=== PATIENT | female | born 1990 | race American Indian/Alaskan Native ===

== ENCOUNTER 2017-08-27 22:11 | Emergency (ER) | payer SELFPAY ==
[2017-08-27 22:32] VITALS: BP 113/66
[2017-08-27 23:08] LABS: Hematocrit 38.3 % (30.3-42.9); Hemoglobin 12.5 gm/dl (10.1-14.3); Mean Corpuscular HGB Conc 33 % (30-34); Mean Corpuscular Hemoglobin 24 pg (28-32); Mean Corpuscular Volume 75 fl (79-97); Platelet Count 200 K/mm3 (140-440); Red Blood Count 5.14 M/mm3 (3.65-5.03); Red Cell Distribution Width 13.9 % (13.2-15.2)
[2017-08-27 23:23] LABS: BUN/Creatinine Ratio 13; Blood Urea Nitrogen 8 mg/dL (7-17); Calcium 9.2 mg/dL (8.4-10.2); Hemolysis Index 3
--- NOTE | 2017-08-28 00:36 | Ultrasound Report ---
FINAL REPORT EXAM: US OB TRANSVAGINAL HISTORY: vaginal bleeding with TECHNIQUE: Transvaginal imaging was obtained the pelvis including Doppler interrogation of the adnexa and uterus. FINDINGS: The uterus is anteverted measuring 10.5 cm x 5.3 cm x 6.1 cm. Centrally uterus is a sac-like structure measuring 7.5 mm in diameter. There is no associated yolk sac or pole seen within it. The cervix is closed. In the lower uterine segment is a hypoechoic myometrial lesion measuring up to 1.1 cm in diameter compatible with small fibroid. There is a small amount of free fluid in cul-de-sac. The right ovary measures 4.6 cm x 4.3 cm x 3.8 cm. There are 2 functional cysts in the right ovary, the larger measuring 3.3 cm in diameter. The blood flow is normal to the right ovary. The left ovary is normal size contour blood flow and echotexture measuring 3.1 cm x 1.8 cm x 1.7 cm. IMPRESSION: Intrauterine sac-like structure without evidence of yolk sac or pole. Follow-up study recommended in 7-10 days to confirm a viable IUP versus demise. Functional cysts in the right ovary, the larger measuring 3.3 cm in diameter. Small amount of free fluid in cul-de-sac.
--- NOTE | 2017-08-28 00:48 | Ultrasound Report ---
FINAL REPORT EXAM: US OB < = 14 WEEKS FETUS HISTORY: vaginal bleeding with TECHNIQUE: Transabdominal imaging was obtained of the pelvis including Doppler interrogation of the uterus and adnexa. FINDINGS: The uterus is anteverted measuring 10.5 cm x 5.3 cm x 6.1 cm. Central in the uterus is intrauterine sac-like structure measuring 7.5 mm in diameter. There is no evidence of a pole or yolk sac. The cervix is closed. In the lower uterine segment right of midline is 1.1 cm hypoechoic myometrial lesion compatible small fibroid. There is a small amount of free fluid in the cul-de-sac. The right ovary measures 4.6 cm x 4.3 cm x 3.8 cm. There are several functional cyst in the right ovary, the largest measuring 3.3 cm in diameter. The blood flow is normal to the right ovary. The left ovary is normal size contour blood flow and echotexture measuring 3.1 cm x 1.8 cm x 1.7 cm. IMPRESSION: Intrauterine sac-like structure corresponding to a 5 week 4 day . No evidence of pole or yolk sac. Repeat imaging is recommended 7-10 days to confirm a viable IUP versus demise. Functional cysts in the right ovary, the larger measuring 3.3 cm in diameter. Small amount of free fluid in cul-de-sac. Small fibroid in the lower uterine segment right of midline.
[2017-08-28 01:57] LABS: Bilirubin,Urine NEG (Negative); Blood,Urine MOD (Negative); Color,Urine Yellow (Yellow); Mucus,Urine FEW /HPF; Protein,Urine <15 mg/dL mg/dL (Negative); Urobilinogen,Urine < 2.0 mg/dL (<2.0)
== END 2017-08-28 01:06 | disposition left against medical advice (07) ==
LOC: ED 22:11
DX: N93.9 Abnormal uterine and vaginal bleeding, unspecified (principal); R10.2 Pelvic and perineal pain; Z53.21 Procedure and treatment not carried out due to patient leaving prior to being seen by health care provider
CPT/HCPCS: 36415; 76801; 76817; 80048; 81001; 84702; 85027; 86900; 86901

== ENCOUNTER 2017-09-11 16:20 | Emergency (ER) | payer SELFPAY ==
--- NOTE | 2017-09-11 17:55 | Emergency Department Report ---
Blank Doc - Documentation Documentation: Patient is a 27-year-old female who was here in emergency department at the end of last month for vaginal bleeding. Patient was calm and pain-free at that time. Patient eloped. Patient did have a Quant that was roughly 2500 and blood work was within normal limits. Patient was O+ for blood type. Patient had an ultrasound that was read as an irregular shaped gestational sac with no pole or yolk sac did look this either to be a early IUP or demise. Patient eloped left stage stated she was going to see her primary doctor but did not. Patient states her bleeding did stop the day after her last visit. Patient states this morning she started having intense lower abdominal pain. Patient is having large amounts of blood clots that she is passing. Patient most likely is having a miscarriage. Because of the amount of pain the patient said in the amount of blood she is passing should be sensitive to the main for further evaluation.
[2017-09-11] MEDS ORDERED: MORPHINE IV ONE (18:32)
[2017-09-11] MEDS ORDERED: NACL 0.9% 1000 ML 1,000 ML IV ONE (18:33)
[2017-09-11] MEDS ORDERED: ZOFRAN IV ONE (18:33)
[2017-09-11] MEDS ORDERED: MORPHINE ONE (18:34)
[2017-09-11] MEDS ORDERED: ZOFRAN ONE (18:34)
[2017-09-11] MEDS ORDERED: NACL 0.9% 1000 ML 1,000 ML ONE (18:34)
[2017-09-11 18:51] VITALS: BP 116/64
[2017-09-11 19:31] LABS: Hematocrit 38.6 % (30.3-42.9); Mean Corpuscular HGB Conc 31 % (30-34); Mean Corpuscular Hemoglobin 24 pg (28-32); Mean Corpuscular Volume 77 fl (79-97); Platelet Count 163 K/mm3 (140-440); Red Blood Count 5.05 M/mm3 (3.65-5.03); Red Cell Distribution Width 14.3 % (13.2-15.2)
--- NOTE | 2017-09-11 19:56 | Emergency Department Report ---
ED HPI - General Chief complaint: Vaginal Bleeding Stated complaint: VAGINAL BLEEDING Time Seen by Provider: 09/11/17 17:18 Source: patient, old records reviewed Mode of arrival: Ambulatory Limitations: No Limitations - History of Present Illness Initial comments: 27-year-old female 7, para 5, with history of one miscarriage presents to the hospital with vaginal bleeding and cramping during current . Patient has been bleeding intermittently since her last visit here on August 27. Patient had labs and ultrasound the left prior to M.D. evaluation but had an ultrasound that was positive for a intrauterine sac like structure corresponding to 5 weeks and 4 days without pole or yolk sac present. Her beta hCG at that time was 2453. Patient now states that for the past 2 days that he has been more significant with clots and cramping superpubic abdominal pain. She has used approximately 3 regular passed today. She has not initiated care lack of insurance is waiting for her Medicare to be activated - Related Data Allergies Allergy/AdvReac Type Severity Reaction Status Date / Time No Known Allergies Allergy Verified 05/13/16 23:49 ED Review of Systems ROS: Stated complaint: VAGINAL BLEEDING Other details as noted in HPI Comment: All other systems reviewed and negative ED Past Medical Hx - Past Medical History Previous Medical History?: Yes - Surgical History Past Surgical History?: Yes Additional Surgical History: C-Sec x 5 - Social History Smoking Status: Current Every Day Smoker Substance Use Type: Marijuana ED Physical Exam - General Limitations: No Limitations - Other Other exam information: General: No limitations, patient is alert in no acute distress Head exam: Atraumatic, normocephalic Eyes exam: Normal appearance ENT: Moist mucous membrane, normal oropharynx Neck exam: Normal inspection, full range of motion, no meningismus nontender Respiratory exam: Clear to auscultation bilateral, no wheezes, rales, crackles Cardiovascular: Normal rate and rhythm, normal heart sounds Abdomen: Soft, nondistended, mild suprapubic tenderness, with normal bowel sounds, no rebound, or guarding Extremity: Full range of motion normal inspection no deformity Back: Normal Inspection, full range of motion, no tenderness Neurologic: Alert, oriented x3, cranial nerves intact, no motor or sensory deficit Psychiatric: normal affect, normal mood Skin: Warm, dry, intact ED Course Vital Signs 09/11/17 09/11/17 09/11/17 16:29 18:40 18:45 Temperature 98.2 F Pulse Rate 98 H 71 Respiratory 18 20 20 Rate Blood Pressure 123/78 Blood Pressure 116/64 [Left] O2 Sat by Pulse 97 100 Oximetry - Consultations Consultation #1: 09/11/17 22:[address] Byrnes carton folder [facility]. Recommend follow-up in office tomorrow and bleeding precautions ED Medical Decision Making - Lab Data Result diagrams: 09/11/17 19:08 Lab Results 09/11/17 09/11/17 Range/Units 16:51 19:08 WBC 7.9 (4.5-11.0) K/mm3 RBC 5.05 H (3.65-5.03) M/mm3 Hgb 12.0 (10.1-14.3) gm/dl Hct 38.6 (30.3-42.9) % MCV 77 L (79-97) fl MCH 24 L (28-32) pg MCHC 31 (30-34) % RDW 14.3 (13.2-15.2) % Plt Count 163 (140-440) K/mm3 HCG, Quant 07324 H (0-4) mIU/mL - Radiology Data Radiology results: report reviewed US OB TRANSVAG/Pelvic FINDINGS: Uterus measures 11 x 5 centimeters. Thickened row genius endometrium is noted in the uterine body. An irregular fluid-filled sac is noted in the lower uterine segment measuring about 22 millimeters corresponding to a gestational age of 7 weeks and 1 day. A small rounded cystic structure measuring 4 millimeters is noted within the sac most likely representing a yolk sac. There is no evidence of pole. Right ovary measures 4 x 2.5 x 2.0 centimeters and left ovary measures 3.0 x 2.6 x 2.0 centimeters. IMPRESSION: Findings are most consistent with incomplete with the gestational sac in the lower uterine segment. Follow-up studies are recommended. - Medical Decision Making Patients hCG improved compared to previous but ultrasound still does not reveal a pole. Given gestational sac size and location it is likely patient is having an incomplete . She is instructed to follow up tomorrow in the office with [facility] and bleeding cautious provided. BLoot type O+ so rhogam not necessary - Differential Diagnosis ectopic, miscarriage, threatened miscarriage Critical Care Time: No Critical care attestation.: If time is entered above; I have spent that time in minutes in the direct care of this critically ill patient, excluding procedure time. ED Disposition Clinical Impression: Vaginal bleeding affecting early Disposition: DC-01 TO HOME OR SELFCARE Is pt being admited?: No Does the pt Need Aspirin: No Condition: Stable Instructions: Threatened Miscarriage (ED) Additional Instructions: It is likely that you are having a miscarriage but you need further evaluation to confirm this diagnosis. Please follow-up with [facility] tomorrow. Call the office in the morning to receive a time to be evaluated. Please return if symptoms worsen as indicated by your discharge instruction. Take Tylenol as needed for pain. Referrals: CELSO CRANDALL MD [Staff Physician] - 09/12/17 Time of Disposition: 22:25
[2017-09-11] MEDS ORDERED: TYLENOL PO ONE (21:11)
--- NOTE | 2017-09-11 21:53 | Ultrasound Report ---
FINAL REPORT PROCEDURE: US OB TRANSVAGINAL TECHNIQUE: Real-time transvaginal sonography of the uterus, placenta, amniotic fluid, adnexa, and fetus was performed with image documentation. Measurements were obtained to determine age/size. M-mode Doppler was used to document heartbeat. CPT 29547 HISTORY: vag bleeding/ COMPARISON: 08/27/2017 FINDINGS: Uterus measures 11 x 5 centimeters. Thickened row genius endometrium is noted in the uterine body. An irregular fluid-filled sac is noted in the lower uterine segment measuring about 22 millimeters corresponding to a gestational age of 7 weeks and 1 day. A small rounded cystic structure measuring 4 millimeters is noted within the sac most likely representing a yolk sac. There is no evidence of pole. Right ovary measures 4 x 2.5 x 2.0 centimeters and left ovary measures 3.0 x 2.6 x 2.0 centimeters. IMPRESSION: Findings are most consistent with incomplete with the gestational sac in the lower uterine segment. Follow-up studies are recommended.
--- NOTE | 2017-09-12 08:45 | Ultrasound Report ---
FINAL REPORT EXAM: US OB < = 14 WEEKS FETUS HISTORY: vag bleeding/ COMPARISONS: Transvaginal ultrasound of the same date, 08/27/2017 FINDINGS: Transabdominal grayscale and color Doppler first-trimester ultrasound A gestational sac is seen within the lower uterine segment and appears slightly irregular. Heterogeneous endometrium surrounds the gestational sac. The contents of the gestational sac are better demonstrated on transvaginal ultrasound of the same date. Ovarian echotexture is also better demonstrated on transvaginal ultrasound of the same date. IMPRESSION: Gestational sac appears irregular and is present within the lower uterine segment. The gestational sac has migrated inferiorly compared to 08/27/2017. Coupled with vaginal bleeding, findings are concerning for progress/incomplete . The contents of the gestational sac are better demonstrated on transvaginal ultrasound of the same date. Close interval clinical and sonographic follow-up are recommended. Note: This examination was performed on 09/11/2017 but not submitted for interpretation until 09/12/2017.
== END 2017-09-11 22:51 | disposition home or self-care (01) ==
LOC: ED 16:20
DX: O20.9 Hemorrhage in early pregnancy, unspecified (principal); O99.331 Smoking (tobacco) complicating pregnancy, first trimester; O26.891 Other specified pregnancy related conditions, first trimester; R10.2 Pelvic and perineal pain; F12.10 Cannabis abuse, uncomplicated; Z3A.01 Less than 8 weeks gestation of pregnancy
CPT/HCPCS: 36415; 76801; 76817; 84702; 85027; 96361; 96374; 96375; 99284; J2270; J2405; J7030

== ENCOUNTER 2017-09-17 13:54 | Emergency (ER) | payer SELFPAY ==
[2017-09-17 14:27] VITALS: BP 129/73
--- NOTE | 2017-09-17 19:07 | Emergency Department Report ---
Blank Doc - Documentation Documentation: 27-year-old female presents to the hospital vaginal bleeding and current . Patient was seen here on August 27 and September 11 for the same symptoms. On August 27 hCG was 2453 and on September 11 with 12,573 Ultrasound from the September 11 IMPRESSION: Findings are most consistent with incomplete with the gestational sac in the lower uterine segment. Follow-up studies are recommended. Patient was given follow-up information with [facility] and states they could not see her. Bleeding increased today and used 10 has today prior to my evaluation. Also continues to have noted Lower abdominal crampy pain not relieved with Tylenol. Blood type O+ Labs ordered CBC, hCG Repeat ultrasound Kiko
[2017-09-17] MEDS ORDERED: ZOFRAN ODT PO ONE (19:11)
[2017-09-17] MEDS ORDERED: NORCO 10/325 PO ONE (19:11)
[2017-09-17 19:24] LABS: Basophils # (Auto) 0.1 K/mm3 (0.0-0.1); Basophils % (Auto) 0.6 % (0.0-1.8); Eosinophils % (Auto) 0.3 % (0.0-4.3); Hematocrit 38.4 % (30.3-42.9); Hemoglobin 12.4 gm/dl (10.1-14.3); Lymphocytes # (Auto) 3.9 K/mm3 (1.2-5.4); Lymphocytes % (Auto) 40.5 % (13.4-35.0); Mean Corpuscular HGB Conc 32 % (30-34); Mean Corpuscular Volume 76 fl (79-97); Monocytes # (Auto) 0.7 K/mm3 (0.0-0.8); Monocytes % (Auto) 7.3 % (0.0-7.3); Platelet Count 239 K/mm3 (140-440); Red Blood Count 5.06 M/mm3 (3.65-5.03); Red Cell Distribution Width 14.2 % (13.2-15.2)
[2017-09-17 19:28] LABS: Mean Corpuscular Hemoglobin 25 pg (28-32)
--- NOTE | 2017-09-17 22:34 | Ultrasound Report ---
FINAL REPORT EXAM: US OB < = 14 WEEKS FETUS HISTORY: vag bleeding TECHNIQUE: Ultrasound obstetrical transabdominal PRIORS: Comparison dated September 11, 2017 FINDINGS: Uterus is 11.0 x 5.0 x 6.4 centimeters Endometrium is thickened measuring 2.0 centimeters with some inhomogeneity present. A gestational sac is not identified. There is some complex material in the lower uterine segment along with fluid. No free fluid identified in the cul-de-sac Right ovary is 3.7 x 2.0 x 2.4 centimeters Left ovary is 3.4 x 2.1 x 2.0 centimeters No abnormal adnexal mass identified IMPRESSION: Suspect incomplete AB with some retained products of conception.
--- NOTE | 2017-09-17 22:48 | Ultrasound Report ---
FINAL REPORT EXAM: US OB TRANSVAGINAL HISTORY: vag bleeding TECHNIQUE: PRIORS: None. FINDINGS: Uterus is 11.0 x 5.0 x 6.4 centimeters Endometrium is thickened measuring 2.0 centimeters with some inhomogeneity present. AP cysts gestational sac is not clearly identified. There is some complex material in the lower uterine segment along with fluid. No free fluid identified in the cul-de-sac Right ovary is 3.7 x 2.0 x 2.4 centimeters Left ovary is 3.4 x 2.1 x 2.0 centimeters No abnormal adnexal mass identified IMPRESSION: Suspect incomplete AB with some retained products of conception.
--- NOTE | 2017-09-18 00:44 | Emergency Department Report ---
ED Female HPI - General Chief complaint: Vaginal Bleeding Stated complaint: VAGINAL BLEEDING Time Seen by Provider: 09/17/17 19:06 Source: patient Mode of arrival: Ambulatory Limitations: No Limitations - History of Present Illness Initial comments: Patient here for evaluation of vaginal bleeding she was seen here several days ago for an ultrasound hcg at that time was 12,000 today is 4000 patient here with some intermittent vaginal bleeding. She denies any heavby bleeding denies soaking thick pads. She denies dizziness or syncope, u/s is showihng thick endometrium but no gestational sac and complex material in lower uterine segmant -: days(s) Severity: mild, moderate Quality: cramping Consistency: intermittent Are you Now?: Yes Associated Symptoms: denies other symptoms, vaginal bleeding, abdominal pain. denies: nausea/vomiting, fever/chills, headaches, loss of appetite, dysuria, hematuria, rash, seizure, shortness of breath, syncope, weakness - Related Data Allergies Allergy/AdvReac Type Severity Reaction Status Date / Time No Known Allergies Allergy Verified 05/13/16 23:49 ED Review of Systems ROS: Stated complaint: VAGINAL BLEEDING Other details as noted in HPI Comment: All other systems reviewed and negative Constitutional: denies: diaphoresis, fever, malaise Eyes: denies: eye discharge, vision change ENT: denies: dental pain, hearing loss, epistaxis Respiratory: denies: shortness of breath, SOB with exertion, SOB at rest, stridor Cardiovascular: denies: chest pain, palpitations, dyspnea on exertion, orthopnea , syncope Gastrointestinal: denies: nausea, vomiting, diarrhea, constipation, hematemesis , melena, hematochezia Genitourinary: denies: hematuria Musculoskeletal: denies: joint swelling, arthralgia Neurological: denies: numbness, paresthesias Psychiatric: denies: auditory hallucinations, visual hallucinations, homicidal thoughts, suicidal thoughts ED Past Medical Hx - Past Medical History Additional medical history: fibroid - Surgical History Additional Surgical History: C-Sec x 5 - Social History Smoking Status: Current Every Day Smoker Substance Use Type: Marijuana ED Physical Exam - General Limitations: No Limitations General appearance: alert, in no apparent distress - Head Head exam: Present: atraumatic, normocephalic - Eye Eye exam: Present: PERRL, EOMI - ENT ENT exam: Present: normal exam, normal orophraynx - Neck Neck exam: Present: normal inspection. Absent: tenderness, meningismus - Respiratory Respiratory exam: Present: normal lung sounds bilaterally. Absent: respiratory distress, wheezes, rales, rhonchi, stridor, chest wall tenderness, accessory muscle use, decreased breath sounds, prolonged expiratory - Cardiovascular Cardiovascular Exam: Present: regular rate, normal rhythm, normal heart sounds. Absent: systolic murmur, diastolic murmur, rubs, gallop - GI/Abdominal GI/Abdominal exam: Present: soft. Absent: distended, tenderness, guarding, rebound, rigid, mass, pulsatile mass - Extremities Exam Extremities exam: Present: normal inspection, normal capillary refill. Absent: pedal edema, joint swelling, calf tenderness - Back Exam Back exam: Present: normal inspection. Absent: CVA tenderness (R), CVA tenderness (L), muscle spasm, paraspinal tenderness, vertebral tenderness - Neurological Exam Neurological exam: Present: alert, oriented X3, CN II-XII intact. Absent: motor sensory deficit ED Course Vital Signs 09/17/17 14:21 Temperature 98.5 F Pulse Rate 85 Respiratory 18 Rate Blood Pressure 129/73 O2 Sat by Pulse 100 Oximetry ED Medical Decision Making - Lab Data Result diagrams: 09/17/17 18:50 - Radiology Data Radiology results: report reviewed - Medical Decision Making Vital signs are stable normal blood pressure and pulse, normal H&H case was discussed with Dr. Gordon will see the patient in the office patient is not having any bleeding at this time she is not soaking pads she is stable for outpatient follow-up Critical care attestation.: If time is entered above; I have spent that time in minutes in the direct care of this critically ill patient, excluding procedure time. ED Disposition Clinical Impression: Missed Disposition: DC-01 TO HOME OR SELFCARE Is pt being admited?: No Condition: Stable Instructions: Threatened Miscarriage (ED) Additional Instructions: Return if new alarming symptoms or call 911 see the doctor listed Referrals: DANA GORDON MD [Staff Physician] - 3-5 Days Time of Disposition: 00:45
== END 2017-09-18 00:55 | disposition home or self-care (01) ==
LOC: ED 13:54
DX: O02.1 Missed abortion (principal); F17.200 Nicotine dependence, unspecified, uncomplicated; Z3A.00 Weeks of gestation of pregnancy not specified
CPT/HCPCS: 36415; 76801; 76817; 84702; 85025; Q0162

== ENCOUNTER 2018-11-03 14:52 | Emergency (ER) | payer SELFPAY ==
[2018-11-03] MEDS ORDERED: TORADOL IM ONE (16:24)
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
[2018-11-03] MEDS ORDERED: TORADOL ONE (16:28)
[2018-11-03 16:36] VITALS: BP 140/98
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
== END 2018-11-03 19:10 | disposition home or self-care (01) ==
LOC: ED 14:52
DX: M54.2 Cervicalgia (principal); M54.6 Pain in thoracic spine; F17.200 Nicotine dependence, unspecified, uncomplicated; F12.10 Cannabis abuse, uncomplicated; V89.2XXA Person injured in unspecified motor-vehicle accident, traffic, initial encounter; Y93.89 Activity, other specified; Y92.488 Other paved roadways as the place of occurrence of the external cause; Y99.8 Other external cause status
CPT/HCPCS: 72050; 72072; 96372; 99283; J1885

== ENCOUNTER 2020-06-26 10:26 | Emergency (ER) | payer SELFPAY ==
[2020-06-26 10:39] VITALS: BP 127/73
--- NOTE | 2020-06-26 10:46 | Emergency Department Report ---
ED General Adult HPI - General Chief complaint: Abdominal Pain Stated complaint: /STOMACH CRAMPS Time Seen by Provider: 06/26/20 10:40 Source: patient Mode of arrival: Ambulatory Limitations: No Limitations - History of Present Illness Initial comments: 29-year-old -[place] female patient presents for lower abdominal cramping x today. Patient states she had a positive home test. She is unsure about her last menstrual cycle due to her cycles being irregular. She denies any vaginal bleeding, dysuria/hematuria, dyspareunia/vaginal discharge, vomiting, diarrhea, constipation, or fever/chills/sweats. Patient rates her current pain as a 4/10 in severity. Pt is [id number]. - Related Data Previous Rx's Medication Instructions Recorded Last Taken Type Cyclobenzaprine HCl [Flexeril 5 MG 5 mg PO TID PRN #21 tab 11/03/18 Unknown Rx TAB] Naproxen [Naprosyn] 500 mg PO BID #14 tablet 11/03/18 Unknown Rx Amoxicillin/Potassium Clav 1 each PO BID 3 Days #6 tablet 06/26/20 Unknown Rx [Augmentin 875-125 Tablet] Allergies Allergy/AdvReac Type Severity Reaction Status Date / Time No Known Allergies Allergy Verified 05/13/16 23:49 ED Review of Systems ROS: Stated complaint: /STOMACH CRAMPS Other details as noted in HPI Constitutional: denies: chills, diaphoresis, fever, malaise Respiratory: denies: see HPI, shortness of breath Cardiovascular: denies: chest pain, edema Gastrointestinal: abdominal pain, nausea. denies: vomiting, diarrhea Genitourinary: denies: urgency, dysuria, frequency, hematuria, discharge, dyspareunia Skin: denies: lesions, change in color Hematological/Lymphatic: denies: swollen glands ED Past Medical Hx - Past Medical History Previous Medical History?: Yes Additional medical history: fibroid - Surgical History Past Surgical History?: Yes Additional Surgical History: C-Sec x 5 - Social History Smoking Status: Current Every Day Smoker Substance Use Type: None - Medications Home Medications: Home Medications Medication Instructions Recorded Confirmed Last Taken Type Cyclobenzaprine HCl [Flexeril 5 MG 5 mg PO TID PRN #21 tab 11/03/18 Unknown Rx TAB] Naproxen [Naprosyn] 500 mg PO BID #14 tablet 11/03/18 Unknown Rx Amoxicillin/Potassium Clav 1 each PO BID 3 Days #6 tablet 06/26/20 Unknown Rx [Augmentin 875-125 Tablet] ED Physical Exam - General Limitations: No Limitations General appearance: alert, in no apparent distress - Head Head exam: Present: atraumatic, normocephalic - Eye Eye exam: Present: normal appearance. Absent: scleral icterus - Neck Neck exam: Present: normal inspection - Respiratory Respiratory exam: Present: normal lung sounds bilaterally. Absent: respiratory distress - Cardiovascular Cardiovascular Exam: Present: regular rate, normal rhythm. Absent: systolic m urmur, diastolic murmur, rubs, gallop - GI/Abdominal GI/Abdominal exam: Present: soft, tenderness (Mild suprapubic), normal bowel sounds. Absent: distended, guarding, rebound, rigid - Extremities Exam Extremities exam: Present: normal inspection, full ROM - Back Exam Back exam: Absent: CVA tenderness (R), CVA tenderness (L) - Neurological Exam Neurological exam: Present: alert, oriented X3 - Psychiatric Psychiatric exam: Present: normal affect, normal mood - Skin Skin exam: Present: warm, dry, intact, normal color. Absent: rash ED Course Vital Signs 06/26/20 10:35 Temperature 98.9 F Pulse Rate 84 Respiratory 16 Rate Blood Pressure 127/73 O2 Sat by Pulse 100 Oximetry ED Medical Decision Making - Lab Data Result diagrams: 06/26/20 11:51 06/26/20 11:51 Lab Results 06/26/20 06/26/20 06/26/20 Range/Units 11:08 11:51 11:51 WBC 6.8 (4.5-11.0) K/mm3 RBC 5.34 H (3.65-5.03) M/mm3 Hgb 12.9 (10.1-14.3) gm/dl Hct 40.4 (30.3-42.9) % MCV 76 L (79-97) fl MCH 24 L (28-32) pg MCHC 32 (30-34) % RDW 13.6 (13.2-15.2) % Plt Count 223 (140-440) K/mm3 Lymph % (Auto) 39.7 H (13.4-35.0) % [place] % (Auto) 8.0 H (0.0-7.3) % Eos % (Auto) 0.5 (0.0-4.3) % Baso % (Auto) 0.6 (0.0-1.8) % Lymph # (Auto) 2.7 (1.2-5.4) K/mm3 [place] # (Auto) 0.5 (0.0-0.8) K/mm3 Eos # (Auto) 0.0 (0.0-0.4) K/mm3 Baso # (Auto) 0.0 (0.0-0.1) K/mm3 Seg Neutrophils % 51.2 (40.0-70.0) % Seg Neutrophils # 3.5 (1.8-7.7) K/mm3 Sodium 134 L (137-145) mmol/L Potassium 4.0 (3.6-5.0) mmol/L Chloride 102.7 (98-107) mmol/L Carbon Dioxide 23 (22-30) mmol/L Anion Gap 12 mmol/L BUN 4 L (7-17) mg/dL Creatinine 0.7 (0.6-1.2) mg/dL Estimated GFR > 60 ml/min BUN/Creatinine Ratio 6 % Glucose 99 (65-100) mg/dL Calcium 8.6 (8.4-10.2) mg/dL Total Bilirubin < 0.20 (0.1-1.2) mg/dL AST 16 (5-40) units/L ALT 12 (7-56) units/L Alkaline Phosphatase 48 (35-129) units/L Total Protein 7.2 (6.3-8.2) g/dL Albumin 4.3 (3.9-5) g/dL Albumin/Globulin Ratio 1.5 % HCG, Quant (0-4) mIU/mL Urine Color Yellow (Yellow) Urine Turbidity Clear (Clear) Urine pH 6.0 (5.0-7.0) Ur Specific [place] 1.010 (1.003-1.030) Urine Protein <15 mg/dl (Negative) mg/dL Urine Glucose (UA) Neg (Negative) mg/dL Urine Ketones Neg (Negative) mg/dL Urine Blood Neg (Negative) Urine Nitrite Neg (Negative) Urine Bilirubin Neg (Negative) Urine Urobilinogen < 2.0 (<2.0) mg/dL Ur Leukocyte Esterase Sm (Negative) Urine WBC (Auto) 8.0 H (0.0-6.0) /HPF Urine RBC (Auto) 2.0 (0.0-6.0) /HPF U Epithel Cells (Auto) 8.0 (0-13.0) /HPF Hyaline Casts 1 /LPF Urine Mucus Few /HPF Blood Type 06/26/20 06/26/20 Range/Units 11:51 11:55 WBC (4.5-11.0) K/mm3 RBC (3.65-5.03) M/mm3 Hgb (10.1-14.3) gm/dl Hct (30.3-42.9) % MCV (79-97) fl MCH (28-32) pg MCHC (30-34) % RDW (13.2-15.2) % Plt Count (140-440) K/mm3 Lymph % (Auto) (13.4-35.0) % [place] % (Auto) (0.0-7.3) % Eos % (Auto) (0.0-4.3) % Baso % (Auto) (0.0-1.8) % Lymph # (Auto) (1.2-5.4) K/mm3 [place] # (Auto) (0.0-0.8) K/mm3 Eos # (Auto) (0.0-0.4) K/mm3 Baso # (Auto) (0.0-0.1) K/mm3 Seg Neutrophils % (40.0-70.0) % Seg Neutrophils # (1.8-7.7) K/mm3 Sodium (137-145) mmol/L Potassium (3.6-5.0) mmol/L Chloride (98-107) mmol/L Carbon Dioxide (22-30) mmol/L Anion Gap mmol/L BUN (7-17) mg/dL Creatinine (0.6-1.2) mg/dL Estimated GFR ml/min BUN/Creatinine Ratio % Glucose (65-100) mg/dL Calcium (8.4-10.2) mg/dL Total Bilirubin (0.1-1.2) mg/dL AST (5-40) units/L ALT (7-56) units/L Alkaline Phosphatase (35-129) units/L Total Protein (6.3-8.2) g/dL Albumin (3.9-5) g/dL Albumin/Globulin Ratio % HCG, Quant 280.0 H (0-4) mIU/mL Urine Color (Yellow) Urine Turbidity (Clear) Urine pH (5.0-7.0) Ur Specific [place] (1.003-1.030) Urine Protein (Negative) mg/dL Urine Glucose (UA) (Negative) mg/dL Urine Ketones (Negative) mg/dL Urine Blood (Negative) Urine Nitrite (Negative) Urine Bilirubin (Negative) Urine Urobilinogen (<2.0) mg/dL Ur Leukocyte Esterase (Negative) Urine WBC (Auto) (0.0-6.0) /HPF Urine RBC (Auto) (0.0-6.0) /HPF U Epithel Cells (Auto) (0-13.0) /HPF Hyaline Casts /LPF Urine Mucus /HPF Blood Type O POSITIVE - Radiology Data Radiology results: report reviewed US OB <= 14 weeks fetus, US OB transvaginal INDICATION / CLINICAL INFORMATION: abdominal pain. COMPARISON: None available. FINDINGS: Uterus contains a solid mass in the anterior fundus, measuring just less than 2 cm, consistent with fibroid. Endometrial stripe measures 1.8 cm in thickness. No evidence of intrauterine . Right ovary contains a 2 cm cyst. Ovaries are otherwise negative. Color Doppler imaging shows normal vascular flow in both ovaries. No free fluid. IMPRESSION: 1. No intrauterine . 2. Uterine fibroid and right ovarian cyst, as described. - Medical Decision Making 29-year-old -[place] female patient presents for lower abdominal cramping x today. Patient states she had a positive home test. She is unsure about her last menstrual cycle due to her cycles being irregular. She denies any vaginal bleeding, dysuria/hematuria, dyspareunia/vaginal discharge, vomiting, diarrhea, constipation, or fever/chills/sweats. Patient rates her current pain as a 4/10 in severity. Ultrasound is negative for IUP or ectopic , however hCG is noted to be 280. Suspect early or threatened miscarriage. Patient denies vaginal bleeding. Recommend patient return to the ED in 2 days for a repeat beta-hCG level. Follow-up with [facility] also recommended, referral provided. UA shows 8 WBCs-urine culture ordered and will treat with Augmentin. Her vitals are normal, she is well-appearing, she is stable for discharge home. Strict return precautions were discussed in great detail with patient who verbalizes understanding. Critical care attestation.: If time is entered above; I have spent that time in minutes in the direct care of this critically ill patient, excluding procedure time. ED Disposition Clinical Impression: Threatened miscarriage UTI in Qualifiers: Trimester: first trimester Qualified Code(s): O23.41 - Unspecified infection of urinary tract in , first trimester Disposition: TO HOME OR SELFCARE Is pt being admited?: No Condition: Stable Instructions: Abdominal Pain (ED), Threatened Miscarriage, and Urinary Tract Infection Additional Instructions: Please return to the emergency department in 2 days for repeat beta hCG level. Prescriptions: Amoxicillin/Potassium Clav [Augmentin 875-125 Tablet] 1 each PO BID 3 Days #6 tablet Referrals: [facility] [Provider Group] - 3-5 Days
--- NOTE | 2020-06-26 11:52 | Ultrasound Report ---
US OB <= 14 weeks fetus, US OB transvaginal INDICATION / CLINICAL INFORMATION: abdominal pain. COMPARISON: None available. FINDINGS: Uterus contains a solid mass in the anterior fundus, measuring just less than 2 cm, consistent with f ibroid. Endometrial stripe measures 1.8 cm in thickness. No evidence of intrauterine . Right ovary contains a 2 cm cyst. Ovaries are otherwise negative. Color Doppler imaging shows normal vascular flow in both ovaries. No free fluid. IMPRESSION: 1. No intrauterine . 2. Uterine fibroid and right ovarian cyst, as described. Signer Name: Homer Velez MD Signed: 06/26/2020 11:48 AM Workstation Name: [id number]
[2020-06-26 11:56] LABS: Bilirubin,Urine NEG (Negative); Blood,Urine NEG (Negative); Color,Urine Yellow (Yellow); Hyaline Casts,Urine 1 /LPF; Mucus,Urine FEW /HPF; Protein,Urine <15 mg/dL mg/dL (Negative); Urobilinogen,Urine < 2.0 mg/dL (<2.0)
[2020-06-26 12:13] LABS: Basophils % (Auto) 0.6 % (0.0-1.8); Eosinophils % (Auto) 0.5 % (0.0-4.3); Hematocrit 40.4 % (30.3-42.9); Hemoglobin 12.9 gm/dl (10.1-14.3); Lymphocytes # (Auto) 2.7 K/mm3 (1.2-5.4); Lymphocytes % (Auto) 39.7 % (13.4-35.0); Mean Corpuscular HGB Conc 32 % (30-34); Mean Corpuscular Volume 76 fl (79-97); Monocytes # (Auto) 0.5 K/mm3 (0.0-0.8); Platelet Count 223 K/mm3 (140-440); Red Blood Count 5.34 M/mm3 (3.65-5.03); Red Cell Distribution Width 13.6 % (13.2-15.2)
[2020-06-26 12:35] LABS: Alanine Aminotransferase 12 units/L (7-56); Albumin 4.3 g/dL (3.9-5); Blood Urea Nitrogen 4 mg/dL (7-17); Calcium 8.6 mg/dL (8.4-10.2); Hemolysis Index 6
[2020-06-26 12:45] LABS: BUN/Creatinine Ratio 6
== END 2020-06-26 13:04 | disposition home or self-care (01) ==
LOC: ED 10:26
DX: O20.0 Threatened abortion (principal); O23.40 Unspecified infection of urinary tract in pregnancy, unspecified trimester; O99.331 Smoking (tobacco) complicating pregnancy, first trimester; Z98.890 Other specified postprocedural states; Z79.899 Other long term (current) drug therapy
CPT/HCPCS: 36415; 76801; 76817; 80053; 81001; 84702; 85025; 86900; 86901; 87086

== ENCOUNTER 2020-06-28 18:27 | Emergency (ER) | payer SELFPAY ==
--- NOTE | 2020-06-28 20:29 | Emergency Department Report ---
ED General Adult HPI - General Chief complaint: Recheck/Abnormal Lab/Rx Stated complaint: NEED HCG LEVELS CHECKED Source: patient Mode of arrival: Ambulatory Limitations: No Limitations - History of Present Illness Initial comments: 29 y/o female presents to the ED for HCG re-check. c/o of cramping only on previous visit. Denies bleeding of any type or duration. No nausea or vomiting. Severity scale (0 -10): 0 Improves with: none Worsens with: none Associated Symptoms: denies other symptoms Treatments Prior to Arrival: none - Related Data Previous Rx's Medication Instructions Recorded Last Taken Type Cyclobenzaprine HCl [Flexeril 5 MG 5 mg PO TID PRN #21 tab 11/03/18 Unknown Rx TAB] Naproxen [Naprosyn] 500 mg PO BID #14 tablet 11/03/18 Unknown Rx Amoxicillin/Potassium Clav 1 each PO BID 3 Days #6 tablet 06/26/20 Unknown Rx [Augmentin 875-125 Tablet] Allergies Allergy/AdvReac Type Severity Reaction Status Date / Time No Known Allergies Allergy Verified 05/13/16 23:49 ED Review of Systems ROS: Stated complaint: NEED HCG LEVELS CHECKED Other details as noted in HPI Comment: All other systems reviewed and negative ED Past Medical Hx - Past Medical History Previous Medical History?: No Additional medical history: fibroid - Surgical History Past Surgical History?: Yes Additional Surgical History: C-Sec x 5 - Social History Smoking Status: Current Every Day Smoker Substance Use Type: None - Medications Home Medications: Home Medications Medication Instructions Recorded Confirmed Last Taken Type Cyclobenzaprine HCl [Flexeril 5 MG 5 mg PO TID PRN #21 tab 11/03/18 Unknown Rx TAB] Naproxen [Naprosyn] 500 mg PO BID #14 tablet 11/03/18 Unknown Rx Amoxicillin/Potassium Clav 1 each PO BID 3 Days #6 tablet 06/26/20 Unknown Rx [Augmentin 875-125 Tablet] ED Physical Exam - General Limitations: No Limitations General appearance: alert, in no apparent distress - Head Head exam: Present: atraumatic, normocephalic - Eye Eye exam: Present: normal appearance, PERRL Pupils: Present: normal accommodation - ENT ENT exam: Present: normal exam, mucous membranes moist - Neck Neck exam: Present: normal inspection - Respiratory Respiratory exam: Present: normal lung sounds bilaterally. Absent: respiratory distress, wheezes, rales, rhonchi, chest wall tenderness, accessory muscle use, prolonged expiratory - Cardiovascular Cardiovascular Exam: Present: regular rate, normal rhythm. Absent: systolic murmur, diastolic murmur, rubs, gallop - GI/Abdominal GI/Abdominal exam: Present: soft, normal bowel sounds - Extremities Exam Extremities exam: Present: normal inspection, normal capillary refill - Back Exam Back exam: Present: normal inspection. Absent: CVA tenderness (R), CVA tenderness (L) - Neurological Exam Neurological exam: Present: alert, oriented X3, CN II-XII intact - Psychiatric Psychiatric exam: Present: normal affect, normal mood - Skin Skin exam: Present: warm, dry, intact, normal color. Absent: rash ED Medical Decision Making - Medical Decision Making reviewed the HCG wtih Ms. Vital and provided a copy of the results. Hcg increasing Critical care attestation.: If time is entered above; I have spent that time in minutes in the direct care of this critically ill patient, excluding procedure time. ED Disposition Clinical Impression: Elevated serum hCG, Disposition: DC TO HOME OR SELFCARE Is pt being admited?: No Does the pt Need Aspirin: No Condition: Stable Instructions: First Trimester of Referrals: [facility] [Provider Group] - 3-5 Days
== END 2020-06-28 21:20 | disposition home or self-care (01) ==
LOC: ED 18:27
DX: O02.81 Inappropriate change in quantitative human chorionic gonadotropin (hCG) in early pregnancy (principal); O99.330 Smoking (tobacco) complicating pregnancy, unspecified trimester; Z79.899 Other long term (current) drug therapy
CPT/HCPCS: 36415; 84702; 99283

== ENCOUNTER 2020-08-17 14:19 | Emergency (ER) | payer SELFPAY ==
--- NOTE | 2020-08-17 15:15 | Event Note ---
ED Screening Note ED Screening Note: suprapubic abd pain that began yesterday no fever no diarrhea morning sickness, intermittent n/v no vaginal discharge no dysuria PMHx none no allergies to meds LNMP: 05/29/2021 P:5 A:4 This initial assessment/diagnostic orders/clinical plan/treatment(s) is/are subject to change based on patients health status, clinical progression and re- assessment by fellow clinical providers in the ED. Further treatment and workup at subsequent clinical providers discretion. Patient/guardian urged not to elope from the ED as their condition may be serious if not clinically assessed and managed. Initial orders include: labs, UA, US
--- NOTE | 2020-08-17 15:59 | Ultrasound Report ---
ULTRASOUND OBSTETRIC INDICATION / CLINICAL INFORMATION: abd pain, . Clinical Gestational Age (GA): 11 weeks 3 days TECHNIQUE: Transabdominal. COMPARISON: Obstetric ultrasound 06/26/2020 FINDINGS: GESTATIONAL SAC: Well-defined oval shape and intrauterine in location. EMBRYO/FETUS: No significant abnormality. - [place]-Rump Length = 5.4 cm = 12 weeks, 0 day(s). - Heart Rate, beats per minute (if present) = 159 ADNEXA: No significant abnormality. FREE FLUID: None. ADDITIONAL FINDINGS: A tiny subchorionic hematoma is noted. IMPRESSION: 1. Single, living intrauterine with estimated sonographic age of 12 weeks, 0 day(s). 2. Tiny subchorionic hematoma. Signer Name: Dania Aparicio MD Signed: 08/17/2020 3:54 PM Workstation Name: [id number]
[2020-08-17 16:04] LABS: Basophils % (Auto) 0.4 % (0.0-1.8); Eosinophils % (Auto) 0.5 % (0.0-4.3); Hematocrit 35.9 % (30.3-42.9); Hemoglobin 12.2 gm/dl (10.1-14.3); Lymphocytes # (Auto) 2.2 K/mm3 (1.2-5.4); Lymphocytes % (Auto) 25.8 % (13.4-35.0); Mean Corpuscular HGB Conc 34 % (30-34); Mean Corpuscular Volume 73 fl (79-97); Monocytes # (Auto) 0.5 K/mm3 (0.0-0.8); Monocytes % (Auto) 6.3 % (0.0-7.3); Platelet Count 223 K/mm3 (140-440); Red Blood Count 4.93 M/mm3 (3.65-5.03); Red Cell Distribution Width 13.1 % (13.2-15.2)
[2020-08-17 16:25] LABS: Alanine Aminotransferase 7 units/L (7-56); Albumin 4.1 g/dL (3.9-5); Blood Urea Nitrogen 5 mg/dL (7-17); Calcium 9.1 mg/dL (8.4-10.2); Hemolysis Index 7
[2020-08-17 16:27] LABS: BUN/Creatinine Ratio 8
[2020-08-17 16:40] LABS: Bilirubin,Urine NEG (Negative); Blood,Urine NEG (Negative); Color,Urine Yellow (Yellow); Mucus,Urine FEW /HPF; Protein,Urine <15 mg/dL mg/dL (Negative); Urobilinogen,Urine < 2.0 mg/dL (<2.0)
--- NOTE | 2020-08-17 21:26 | Emergency Department Report ---
ED Female HPI - General Chief complaint: Abdominal Pain Stated complaint: ABD PAIN, SEEING BLACK SPOTS Time Seen by Provider: 08/17/20 15:14 Source: patient Mode of arrival: Ambulatory Limitations: No Limitations - History of Present Illness Initial comments: 29-year-old -[place] female that emerge department complaining of pelvic pain and cramping associated with nausea and vomiting off and on for the last few days presents emerged department for evaluation treatment options ports no fever, chills, sweats reports no chest pain reports no hematuria or dysuria. No constipation no diarrhea. No no sick contact MD Complaint: pelvic pain -: Gradual Location: suprapubic Radiation: non-radiating Severity: mild Quality: dull Consistency: constant Improves with: none Worsens with: none Are you Now?: Yes Associated Symptoms: denies: vaginal bleeding, nausea/vomiting, loss of appetite, hematuria, rash, syncope, other - Related Data Previous Rx's Medication Instructions Recorded Last Taken Type Cyclobenzaprine HCl [Flexeril 5 MG 5 mg PO TID PRN #21 tab 11/03/18 Unknown Rx TAB] Naproxen [Naprosyn] 500 mg PO BID #14 tablet 11/03/18 Unknown Rx Amoxicillin/Potassium Clav 1 each PO BID 3 Days #6 tablet 06/26/20 Unknown Rx [Augmentin 875-125 Tablet] Doxylamine Succinate/Vit B6 1 each PO TID PRN #30 tablet. 08/17/20 Unknown Rx [Marina Boothe 10-10 mg Tablet] Pnv,Calcium 72/Iron,Carb/Folic 1 each PO DAILY #30 tablet 08/17/20 Unknown Rx [ Plus Iron Tablet] Allergies Allergy/AdvReac Type Severity Reaction Status Date / Time No Known Allergies Allergy Verified 05/13/16 23:49 ED Review of Systems ROS: Stated complaint: ABD PAIN, SEEING BLACK SPOTS Other details as noted in HPI Comment: All other systems reviewed and negative ED Past Medical Hx - Past Medical History Previous Medical History?: Yes Additional medical history: fibroid - Surgical History Past Surgical History?: Yes Additional Surgical History: C-Sec x 5 - Social History Smoking Status: Never Smoker Substance Use Type: None - Medications Home Medications: Home Medications Medication Instructions Recorded Confirmed Last Taken Type Cyclobenzaprine HCl [Flexeril 5 MG 5 mg PO TID PRN #21 tab 11/03/18 Unknown Rx TAB] Naproxen [Naprosyn] 500 mg PO BID #14 tablet 11/03/18 Unknown Rx Amoxicillin/Potassium Clav 1 each PO BID 3 Days #6 tablet 06/26/20 Unknown Rx [Augmentin 875-125 Tablet] Doxylamine Succinate/Vit B6 1 each PO TID PRN #30 tablet. 08/17/20 Unknown Rx [Diclegis Dr 10-10 mg Tablet] Pnv,Calcium 72/Iron,Carb/Folic 1 each PO DAILY #30 tablet 08/17/20 Unknown Rx [ Plus Iron Tablet] ED Physical Exam - General Limitations: No Limitations General appearance: alert, in no apparent distress - Head Head exam: Present: atraumatic, normocephalic - Eye Eye exam: Present: normal appearance, PERRL Pupils: Present: normal accommodation - ENT ENT exam: Present: normal exam, normal orophraynx, mucous membranes moist - Neck Neck exam: Present: normal inspection, full ROM - Respiratory Respiratory exam: Present: normal lung sounds bilaterally. Absent: respiratory distress, wheezes, rales, chest wall tenderness - Cardiovascular Cardiovascular Exam: Present: regular rate, normal rhythm. Absent: systolic murmur, diastolic murmur, rubs, gallop - GI/Abdominal GI/Abdominal exam: Present: soft, normal bowel sounds. Absent: tenderness, guarding, hyperactive bowel sounds, organomegaly - Extremities Exam Extremities exam: Present: normal inspection, normal capillary refill - Back Exam Back exam: Present: normal inspection - Neurological Exam Neurological exam: Present: alert, oriented X3 - Psychiatric Psychiatric exam: Present: normal affect, normal mood - Skin Skin exam: Present: warm, dry, intact, normal color. Absent: rash ED Medical Decision Making - Lab Data Result diagrams: 08/17/20 15:18 08/17/20 15:18 - Radiology Data Radiology results: report reviewed [address] [place] [id number] Ultrasound Report Signed Patient: MADISON BAXTER MR#: [id number] : 1990 Acct:[id number] Age/Sex: 29 / F ADM Date: 08/17/20 Loc: ED Attending Dr: Ordering Physician: HARRIS COULTER Date of Service: 08/17/20 Procedure(s): US OB <= 14 weeks fetus Accession Number(s): [id number] cc: HARRIS COULTER ULTRASOUND OBSTETRIC INDICATION / CLINICAL INFORMATION: abd pain, . Clinical Gestational Age (GA): 11 weeks 3 days TECHNIQUE: Transabdominal. COMPARISON: Obstetric ultrasound 06/26/2020 FINDINGS: GESTATIONAL SAC: Well-defined oval shape and intrauterine in location. EMBRYO/FETUS: No significant abnormality. - [place]-Rump Length = 5.4 cm = 12 weeks, 0 day(s). - Heart Rate, beats per minute (if present) = 159 ADNEXA: No significant abnormality. FREE FLUID: None. ADDITIONAL FINDINGS: A tiny subchorionic hematoma is noted. IMPRESSION: 1. Single, living intrauterine with estimated sonographic age of 12 weeks, 0 day(s). 2. Tiny subchorionic hematoma. Signer Name: Dania Aparicio MD Signed: 08/17/2020 3:54 PM Workstation Name: [id number] Transcribed By: [facility] Dictated By: Dania Aparicio MD Electronically Authenticated By: Dania Aparicio MD Signed Date/Time: 08/17/20 1554 DD/ 1549 TD/TT: Critical care attestation.: If time is entered above; I have spent that time in minutes in the direct care of this critically ill patient, excluding procedure time. ED Disposition Clinical Impression: Discomfort during Disposition: DC-01 TO HOME OR SELFCARE Is pt being admited?: No Does the pt Need Aspirin: No Condition: Stable Instructions: Abdominal Pain (ED), Hyperemesis Gravidarum, Care Prescriptions: Doxylamine Succinate/Vit B6 [Marina Boothe 10-10 mg Tablet] 1 each PO TID PRN #30 tablet. PRN Reason: nausea Pnv,Calcium 72/Iron,Carb/Folic [ Plus Iron Tablet] 1 each PO DAILY #30 tablet Referrals: [facility] [Primary Care Provider] - 3-5 Days [facility] [Provider Group] - 3-5 Days
== END 2020-08-17 18:01 | disposition home or self-care (01) ==
LOC: ED 14:19
DX: O26.891 Other specified pregnancy related conditions, first trimester (principal); O21.8 Other vomiting complicating pregnancy; R10.2 Pelvic and perineal pain; Z98.890 Other specified postprocedural states; Z79.899 Other long term (current) drug therapy; Z3A.01 Less than 8 weeks gestation of pregnancy
CPT/HCPCS: 36415; 76801; 80053; 81001; 84702; 85025

== ENCOUNTER 2020-09-04 08:19 | Emergency (ER) | payer SELFPAY ==
[2020-09-04 08:35] VITALS: BP 126/77
[2020-09-04 08:55] LABS: Bilirubin,Urine NEG (Negative); Blood,Urine NEG (Negative); Color,Urine Yellow (Yellow); Mucus,Urine FEW /HPF; Protein,Urine <15 mg/dL mg/dL (Negative); Urobilinogen,Urine < 2.0 mg/dL (<2.0)
--- NOTE | 2020-09-04 09:45 | Emergency Department Report ---
ED Abdominal Pain HPI - General Chief Complaint: Abdominal Pain Stated Complaint: 14WKS ABD PAIN Time Seen by Provider: 09/04/20 09:04 Source: patient Mode of arrival: Ambulatory Limitations: No Limitations - History of Present Illness Initial Comments: This is a 30-year-old female with complaints of abdominal pain that started this morning associated with nausea no vomiting no vaginal bleeding, she denies any urinary symptoms no upper respiratory symptoms no cough no fever no chest pain no shortness of breath, she is in no acute distress her last bowel movement was this morning at 7 AM. Patient is 10 para 5 miscarriage3 for her last me nstrual period was in May. She was last seen in this emergency room on August with complaint of abdominal pain. She is approximately 14 weeks. She has not followed up with an [facility] as yet states she is waiting for her insurance. Patient in no acute distress -: This morning Location: diffuse Radiation: none Migration to: no migration Quality: cramping Improves With: nothing Worsens With: nothing Associated Symptoms: nausea. denies: vomiting, diarrhea, constipation, dysuria, melena, hematuria, anorexia - Related Data Previous Rx's Medication Instructions Recorded Last Taken Type Cyclobenzaprine HCl [Flexeril 5 MG 5 mg PO TID PRN #21 tab 11/03/18 Unknown Rx TAB] Naproxen [Naprosyn] 500 mg PO BID #14 tablet 11/03/18 Unknown Rx Amoxicillin/Potassium Clav 1 each PO BID 3 Days #6 tablet 06/26/20 Unknown Rx [Augmentin 875-125 Tablet] Doxylamine Succinate/Vit B6 1 each PO TID PRN #30 tablet. 08/17/20 Unknown Rx [Marina Boothe 10-10 mg Tablet] Pnv,Calcium 72/Iron,Carb/Folic 1 each PO DAILY #30 tablet 08/17/20 Unknown Rx [ Plus Iron Tablet] Pnv,Calcium 72/Iron/Folic Acid 1 each PO DAILY #30 tablet 09/04/20 Unknown Rx [ Plus Tablet] Allergies Allergy/AdvReac Type Severity Reaction Status Date / Time No Known Allergies Allergy Verified 05/13/16 23:49 ED Review of Systems ROS: Stated complaint: 14WKS ABD PAIN Other details as noted in HPI Comment: All other systems reviewed and negative Constitutional: no symptoms reported Eyes: denies: eye pain, eye discharge ENT: denies: throat pain Respiratory: denies: cough, shortness of breath, SOB with exertion Cardiovascular: denies: chest pain, palpitations, edema Endocrine: no symptoms reported. denies: excessive sweating, intolerance to cold Gastrointestinal: denies: abdominal pain, constipation Genitourinary: denies: urgency, hematuria Musculoskeletal: denies: back pain, joint swelling Neurological: denies: headache, numbness Psychiatric: denies: anxiety ED Past Medical Hx - Past Medical History Previous Medical History?: Yes Additional medical history: fibroid - Surgical History Additional Surgical History: C-Sec x 5 - Social History Smoking Status: Never Smoker - Medications Home Medications: Home Medications Medication Instructions Recorded Confirmed Last Taken Type Cyclobenzaprine HCl [Flexeril 5 MG 5 mg PO TID PRN #21 tab 11/03/18 Unknown Rx TAB] Naproxen [Naprosyn] 500 mg PO BID #14 tablet 11/03/18 Unknown Rx Amoxicillin/Potassium Clav 1 each PO BID 3 Days #6 tablet 06/26/20 Unknown Rx [Augmentin 875-125 Tablet] Doxylamine Succinate/Vit B6 1 each PO TID PRN #30 tablet. 08/17/20 Unknown Rx [Diclegis Dr 10-10 mg Tablet] Pnv,Calcium 72/Iron,Carb/Folic 1 each PO DAILY #30 tablet 08/17/20 Unknown Rx [ Plus Iron Tablet] Pnv,Calcium 72/Iron/Folic Acid 1 each PO DAILY #30 tablet 09/04/20 Unknown Rx [ Plus Tablet] ED Physical Exam - General Limitations: No Limitations General appearance: alert, in no apparent distress - Head Head exam: Present: atraumatic - Eye Eye exam: Present: normal appearance - ENT ENT exam: Present: normal exam - Neck Neck exam: Present: normal inspection - Respiratory Respiratory exam: Present: normal lung sounds bilaterally - Cardiovascular Cardiovascular Exam: Present: regular rate, normal heart sounds - GI/Abdominal GI/Abdominal exam: Present: soft, normal bowel sounds. Absent: tenderness, guarding, rebound - External exam: Present: normal external exam - Extremities Exam Extremities exam: Present: normal inspection - Back Exam Back exam: Present: normal inspection - Neurological Exam Neurological exam: Present: alert, oriented X3 - Psychiatric Psychiatric exam: Present: normal affect - Skin Skin exam: Present: warm, dry, intact ED Course Vital Signs 09/04/20 09/04/20 08:31 09:59 Temperature 98.8 F Pulse Rate 96 H Respiratory 18 16 Rate Blood Pressure 126/77 O2 Sat by Pulse 100 Oximetry - Reevaluation(s) Reevaluation #1: 09/04/20 11:17 Patient in no distress resting comfortably awaiting ultrasound report ED Medical Decision Making - Lab Data Result diagrams: 09/04/20 09:36 09/04/20 09:36 - Radiology Data Radiology results: report reviewed OB ultrasound INDICATION: Abdominal pain FINDINGS: There is a single live intrauterine with heart rate 152 bpm. Estimated 0. Cervix length is 4 cm. Amniotic fluid volume appears normal. [place]-rump length measures 6.73 measuring 13 weeks 0 days. Uterus measures 13.8 x 9.3 x 8.9 cm IMPRESSION: Live intrauterine with ultrasound gestational age 13 weeks 0 days. Normal heart rate. Critical Care Time: No Critical care attestation.: If time is entered above; I have spent that time in minutes in the direct care o f this critically ill patient, excluding procedure time. ED Disposition Clinical Impression: Abdominal pain during Qualifiers: Trimester: second trimester Qualified Code(s): O26.892 - Other specified related conditions, second trimester Disposition: DC- TO HOME OR SELFCARE Is pt being admited?: No Does the pt Need Aspirin: No Condition: Stable Instructions: Round Ligament Pain, Abdominal Pain During , [id number], Abdominal Pain (ED) Additional Instructions: Your ultrasound report shows a live approximately 13 weeks. Your blood type [place] O+. [place] [address]. Your urine did not show any signs of infection and your other blood work had no acute findings this is a normal range for your weeks of . It is very important that you follow-up with an [facility]. You can follow-up with the my [facility] group the number is [phone] to call for an appointment if you develop vaginal bleeding or contraction-like pain please return to the emergency room. Prescriptions: Pnv,Calcium 72/Iron/Folic Acid [ Plus Tablet] 1 each PO DAILY #30 tablet Referrals: PRIMARY MD LUANNE [Primary Care Provider] - 3-5 Days LATANYA SALGADO MD [Staff Physician] - 3-5 Days Time of Disposition: 12:00
[2020-09-04] MEDS ORDERED: ACETAMINOPHEN 325 MG TAB PO ONE (09:49)
[2020-09-04 09:50] LABS: Hematocrit 34.3 % (30.3-42.9); Hemoglobin 11.2 gm/dl (10.1-14.3); Mean Corpuscular HGB Conc 33 % (30-34); Mean Corpuscular Volume 74 fl (79-97); Platelet Count 172 K/mm3 (140-440); Red Blood Count 4.61 M/mm3 (3.65-5.03); Red Cell Distribution Width 13.3 % (13.2-15.2)
[2020-09-04 10:07] LABS: Blood Urea Nitrogen 5 mg/dL (7-17); Calcium 8.7 mg/dL (8.4-10.2); Hemolysis Index 1
[2020-09-04 10:08] LABS: BUN/Creatinine Ratio 8
--- NOTE | 2020-09-04 11:41 | Ultrasound Report ---
OB ultrasound INDICATION: Abdominal pain FINDINGS: There is a single live intrauterine with heart rate 1 52 bpm. Estimated 0. Cervix length is 4 cm. Amniotic fluid volume appears normal. [place]-rump length measures 6.73 measurin g 13 weeks 0 days. Uterus measures 13.8 x 9.3 x 8.9 cm IMPRESSION: Live intrauterine with ultrasound gestational age 13 weeks 0 days. Normal heart rate. Signer Name: Adolfo Stern MD Signed: 09/04/2020 11:37 AM Workstation Name: [id number]
== END 2020-09-04 12:02 | disposition home or self-care (01) ==
LOC: ED 08:19
DX: O26.892 Other specified pregnancy related conditions, second trimester (principal); R10.9 Unspecified abdominal pain; Z3A.14 14 weeks gestation of pregnancy; Z79.899 Other long term (current) drug therapy; Z98.890 Other specified postprocedural states
CPT/HCPCS: 36415; 76805; 80048; 81001; 84702; 85027; 86900; 86901

== ENCOUNTER 2020-10-12 16:03 | Outpatient (CLI) | payer MEDICAID ==
[2020-10-12 18:44] LABS: Bilirubin,Urine NEG (Negative); Blood,Urine NEG (Negative); Color,Urine Yellow (Yellow); Mucus,Urine FEW /HPF; Protein,Urine <15 mg/dL mg/dL (Negative); Urobilinogen,Urine < 2.0 mg/dL (<2.0)
[2020-10-12 19:06] VITALS: BP 119/69
[2020-10-12] MEDS ORDERED: ACETAMINOPHEN 500 MG TAB PO ONE (19:36)
[2020-10-12] MEDS ORDERED: LACTATED RINGERS 1,000 ML IV SCH (20:00)
--- NOTE | 2020-10-12 21:09 | Ultrasound Report ---
ULTRASOUND OBSTETRIC INDICATION / CLINICAL INFORMATION: wellbeing, estimated due date. Clinical Gestational Age (GA) in weeks, days: 19, 3 TECHNIQUE: Transabdominal. COMPARISON: Ultrasound dated 09/04/20 FINDINGS: Single intrauterine . Biparietal Diameter = 4.5 cm = 19, 5 weeks, days Head Circumference = 17.0 cm = 19, 4 weeks, days Abdominal Circumference = 14.7 cm = 20, 0 weeks, days Femur Length = 3.0 cm = 19, 2 weeks, days Average Ultrasound Age (AUA) = 19, 5 weeks, days Heart Rate: 150 beats per minute. Estimated Weight in grams (if calculated): 303 Estimated Weight Growth Percentile (if calculated): Not calculated Position: cephalic. Cervix: closed. Length in cm (if measured): Not measured. Placenta: anterior and free of the os. Amniotic Fluid Volume: normal Amniotic Fluid Index (BRET) in cm (if calculated): Not calculated. Maternal Adnexa: No significant abnormality. IMPRESSION: 1. Single, living intrauterine with estimated sonographic age of 19, 5 weeks, days. 2. No significant sonographic abnormality. Signer Name: Saurav Valenzuela MD Signed: 10/12/2020 9:05 PM Workstation Name: [id number]
== END 2020-10-12 20:45 | disposition home or self-care (01) ==
LOC: EDSTATUS 17:37 → TRG 17:39 → APU 17:39 → TRG 20:45
PROVIDERS: ATTEND Obstetrics & Gynecology
DX: O47.02 False labor before 37 completed weeks of gestation, second trimester (principal); Z3A.19 19 weeks gestation of pregnancy
CPT/HCPCS: 59025; 76816; 81001

== ENCOUNTER 2020-11-22 19:11 | Outpatient (CLI) | payer MEDICAID ==
[2020-11-22] MEDS ORDERED: LACTATED RINGERS 1,000 ML IV ONE (19:39)
[2020-11-22 19:55] LABS: Bilirubin,Urine NEG (Negative); Blood,Urine NEG (Negative); Color,Urine Yellow (Yellow); Mucus,Urine FEW /HPF; Protein,Urine <15 mg/dL mg/dL (Negative); RBC,Urine < 1.0 /HPF (0.0-6.0); Urobilinogen,Urine < 2.0 mg/dL (<2.0)
[2020-11-22 20:19] VITALS: BP 99/56
== END 2020-11-23 18:13 | disposition home or self-care (01) ==
LOC: TRG 19:11 → APU 19:14 → TRG 11-23 18:13
DX: O26.892 Other specified pregnancy related conditions, second trimester (principal); R20.0 Anesthesia of skin; O47.02 False labor before 37 completed weeks of gestation, second trimester; O99.332 Smoking (tobacco) complicating pregnancy, second trimester; F17.200 Nicotine dependence, unspecified, uncomplicated; Z3A.26 26 weeks gestation of pregnancy
CPT/HCPCS: 59025; 81001; 96360; J7120

== ENCOUNTER 2020-12-05 13:11 | Emergency (ER) | payer MEDICAID | END 2020-12-05 14:02 | LOC: ED 13:11 | DX: R20.0 Anesthesia of skin (principal); Z53.21 Procedure and treatment not carried out due to patient leaving prior to being seen by health care provider ==

== ENCOUNTER 2021-01-21 10:59 | Outpatient (CLI) | payer MEDICAID ==
[2021-01-21] MEDS ORDERED: LACTATED RINGERS 1,000 ML IV ONE ×2 (11:34→12:05)
[2021-01-21 12:12] LABS: Bilirubin,Urine NEG (Negative); Blood,Urine NEG (Negative); Color,Urine Yellow (Yellow); Mucus,Urine FEW /HPF; Protein,Urine <15 mg/dL mg/dL (Negative); RBC,Urine < 1.0 /HPF (0.0-6.0); Urobilinogen,Urine < 2.0 mg/dL (<2.0)
[2021-01-21 12:23] LABS: WBC,Urine < 1.0 /HPF (0.0-6.0)
[2021-01-21 14:00] VITALS: BP 108/69
--- NOTE | 2021-01-21 14:03 | Ultrasound Report ---
LIMITED OBSTETRICAL ULTRASOUND WITH BIOPHYSICAL PROFILE HISTORY: Evaluate BRET, placenta and scar. Limited obstetrical ultrasound was performed. A single viable intrauterine in the cephalic position has heart tones of 144 bpm. Amniotic fluid index is normal measuring 12 cm. There is n o sign of abruption. No abnormalities identified at the scar. Biophysical profile is normal at 8/8. IMPRESSION: 1. Normal biophysical profile of 8/8. 2. Unremarkable limited obstetrical ultrasound. Signer Name: Avel Serrano MD Signed: 01/21/2021 1:59 PM Workstation Name: [id number]
[2021-01-21 14:30] LABS: Cannabinoid Screen,Urine PRESUMPTIVE POSITIVE
[2021-01-21 14:45] LABS: Amphetamine Screen,Urine PRESUMPTIVE NEGATIVE; Benzodiazepines Screen,Urine PRESUMPTIVE NEGATIVE; Cocaine Screen,Urine PRESUMPTIVE NEGATIVE; Methadone Screen,Urine PRESUMPTIVE NEGATIVE; Opiate Screen,Urine PRESUMPTIVE NEGATIVE
== END 2021-01-21 14:55 | disposition home or self-care (01) ==
LOC: TRG 10:59 → APU 11:03 → TRG 14:55
DX: O26.893 Other specified pregnancy related conditions, third trimester (principal); R10.9 Unspecified abdominal pain; M54.5 Low back pain; Z3A.36 36 weeks gestation of pregnancy
CPT/HCPCS: 76815; 76819; 80307; 81001; J7120

== ENCOUNTER 2021-02-14 10:12 | Inpatient (IN) | payer MEDICAID ==
[2021-02-14] MEDS ORDERED: FAMOTIDINE 20 MG/2 ML INJ IV NR (10:17)
[2021-02-14] MEDS ORDERED: METOCLOPRAMIDE 10 MG/2 ML INJ IV NR (10:17)
[2021-02-14] MEDS ORDERED: BICITRA ORAL LIQD 30ML PO NR (10:17)
--- NOTE | 2021-02-14 10:17 | History and Physical Report ---
History of Present Illness Date of examination: 02/14/21 Date of admission: 02/14/21 10:12 Chief complaint: Elective repeat delivery Declines sterilization care at [facility] Past History - Obstetrical History Expected Date of Delivery: 02/23/21 Actual Gestation: 38 Week(s) 6 Day(s) : 10 Para: 5 Medications and Allergies Allergies Allergy/AdvReac Type Severity Reaction Status Date / Time No Known Allergies Allergy Verified 05/13/16 23:49 Home Medications Medication Instructions Recorded Confirmed Last Taken Type Cyclobenzaprine HCl [Flexeril 5 MG 5 mg PO TID PRN #21 tab 11/03/18 Unknown Rx TAB] Naproxen [Naprosyn] 500 mg PO BID #14 tablet 11/03/18 Unknown Rx Amoxicillin/Potassium Clav 1 each PO BID 3 Days #6 tablet 06/26/20 Unknown Rx [Augmentin 875-125 Tablet] Doxylamine Succinate/Vit B6 1 each PO TID PRN #30 tablet. 08/17/20 Unknown Rx [Marina Boothe 10-10 mg Tablet] Pnv,Calcium 72/Iron,Carb/Folic 1 each PO DAILY #30 tablet 08/17/20 Unknown Rx [ Plus Iron Tablet] Pnv,Calcium 72/Iron/Folic Acid 1 each PO DAILY #30 tablet 09/04/20 Unknown Rx [ Plus Tablet] Review of Systems All systems: negative (No OB complaints) - Physical Exam Breasts: Positive: deferred Cardiovascular: Regular rate Lungs: Positive: Clear to auscultation Abdomen: Positive: normal appearance, soft, normal bowel sounds Genitourinary (Female): Positive: normal external genitalia Uterus: Positive: enlarged Deep Tendon Reflex Grade: Normal +2 - Obstetrical FHR: category 1 Results Result Diagrams: 02/14/21 10:55 All other labs normal. Assessment and Plan elective repeat section previous c/sectionx5 declines BLT informed consent NPO, on leigh to OR for procedure 2 units PRBC on hold Radha Hidalgo MD
[2021-02-14] MEDS ORDERED: ceFAZolin/Water 2 GM/20 ML 2 GM/20 ML SYRINGE IV NR (11:00)
[2021-02-14] MEDS ORDERED: OXYTOCIN DRIP 30 UNITS/500 ML BAG IV SCH (11:00)
[2021-02-14 11:21] LABS: Basophils % (Auto) 0.4 % (0.0-1.8); Eosinophils % (Auto) 0.2 % (0.0-4.3); Hematocrit 31.6 % (30.3-42.9); Hemoglobin 10.5 gm/dl (10.1-14.3); Lymphocytes # (Auto) 1.7 K/mm3 (1.2-5.4); Lymphocytes % (Auto) 22.8 % (13.4-35.0); Mean Corpuscular HGB Conc 33 % (30-34); Mean Corpuscular Volume 76 fl (79-97); Monocytes # (Auto) 0.7 K/mm3 (0.0-0.8); Platelet Count 157 K/mm3 (140-440); Red Blood Count 4.19 M/mm3 (3.65-5.03); Red Cell Distribution Width 13.6 % (13.2-15.2)
[2021-02-14] MEDS ORDERED: miSOPROStol 200 MCG TAB ONE (11:46)
[2021-02-14] MEDS ORDERED: CARBOPROST TROMETHAMINE 250 MCG/1 ML INJ IM ONE (11:46)
[2021-02-14] MEDS ORDERED: METHYLERGONOVINE MALEATE 0.2 MG/ML VIAL IM ONE (11:47)
[2021-02-14] MEDS ORDERED: ACETAMINOPHEN 325 MG TAB PO PRN (12:00)
[2021-02-14] MEDS ORDERED: BUTORPHANOL 2 MG/1 ML INJ IV PRN ×2 (12:00)
[2021-02-14] MEDS ORDERED: fentaNYL 100 MCG/2 ML INJ IV PRN (12:00)
[2021-02-14] MEDS: LACTATED RINGERS 1,000 ML IV SCH ×2 (12:24→21:54)
--- NOTE | 2021-02-14 12:38 | Anesthesia Day of Surgery ---
Anesthesia Day of Surgery - Day of Surgery Patient Examined: Yes Patient H&P Reviewed: Yes Patient is NPO: Yes Beta Blockers: No Cardiac Clearance: No Pulmonary Clearance: No Leo's Test: Negative
--- NOTE | 2021-02-14 12:41 | Anesthesia Consultation ---
Anesthesia Consult and Med Hx Date of service: 02/14/21 - Airway Anesthetic Teeth Evaluation: Poor Mental/Hyoid Distance: Adequate Mallampati Class: Class II Intubation Access Assessment: Probably Good - Pulmonary Exam CTA: Yes - Cardiac Exam Cardiac Exam: RRR - Pre-Operative Health Status ASA Pre-Surgery Classification: ASA3 Proposed Anesthetic Plan: Spinal - Pulmonary Hx Smoking: Yes (10 cig/day >25yrs) Hx Asthma: No Hx Respiratory Symptoms: No SOB: Yes COPD: No Home Oxygen Therapy: No Hx Pneumonia: No Hx Sleep Apnea: No - Cardiovascular System Hx Hypertension: No Hx Coronary Artery Disease: No Hx Heart Attack/AMI: No Hx Angina: No Hx Percutaneous Transluminal Coronary Angioplasty (PTCA): No Hx Cardia Arrhythmia: No Hx Pacemaker: No Hx Internal Defibrillator: No Hx Valvular Heart Disease: No Hx Heart Murmur: No Hx Peripheral Vascular Disease: No - Central Nervous System Hx Neuromuscular Disorder: No Hx Seizures: No CVA: No Hx Back Pain: Yes Hx Psychiatric Problems: No - Gastrointestinal Hx Ulcer: No Hx Gastroesophageal Reflux Disease: Yes - Endocrine Hx Renal Disease: No Hx End Stage Renal Disease: No Hx Cirrhosis: No Hx Liver Disease: No Hx Insulin Dependent Diabetes: No Hx Non-Insulin Dependent Diabetes: Yes Hx Thyroid Disease: No Hx Hypothyroidism: No Hx Hyperthyroidism: No - Hematic Hx Anemia: No Hx Sickle Cell Disease: No - Other Systems Hx Alcohol Use: No Hx Substance Use: No Hx Cancer: No Hx Obesity: Yes
--- NOTE | 2021-02-14 12:58 | Event Note ---
Date: 02/14/21 Non responsive to verbal stimulus Awake to touch C/section on hold: patient admitting to drug use in triage Will send OB drug abuse panel Pt for obs in triage Radha Hidalgo MD
[2021-02-14] MEDS ORDERED: SODIUM CHLORIDE 0.9% 500 ML 500 ML IV SCH (13:00)
[2021-02-14 16:16] LABS: Amphetamine Screen,Urine Negative; Benzodiazepines Screen,Urine Negative; Cocaine Screen,Urine Negative; Methadone Screen,Urine Negative; Opiate Screen,Urine Negative
[2021-02-14 16:34] LABS: Cannabinoid Screen,Urine Positive
--- NOTE | 2021-02-14 21:34 | Progress Note ---
Subjective - Subjective Date of service: 02/14/21 Interval history: PM rounds FHT Category 1 [place]: not anibal Maternal/ status reassuring overall Plan of care: NPO after midnight Operative delivery at 07:30 Maternal/ well being reassuring overall Radha Hidalgo MD Objective - Vital Signs Vital Signs: Vital Signs - 12hr 02/14/21 02/14/21 02/14/21 10:19 11:26 14:18 Temperature 98.4 F Pulse Rate 88 Blood Pressure 103/68 O2 Sat by Pulse 90 Oximetry 02/14/21 02/14/21 02/14/21 14:57 15:02 15:04 Temperature Pulse Rate 58 L 129 H 168 H Blood Pressure O2 Sat by Pulse 90 100 83 L Oximetry 02/14/21 02/14/21 02/14/21 15:22 15:23 15:26 Temperature Pulse Rate 115 H 97 H Blood Pressure 109/55 O2 Sat by Pulse 69 L 73 L Oximetry 02/14/21 02/14/21 02/14/21 15:28 15:33 15:38 Temperature Pulse Rate 96 H 100 H 90 Blood Pressure O2 Sat by Pulse 98 98 97 Oximetry 02/14/21 02/14/21 02/14/21 15:43 15:48 15:53 Temperature Pulse Rate 100 H 101 H 95 H Blood Pressure O2 Sat by Pulse 98 96 96 Oximetry 02/14/21 02/14/21 02/14/21 15:56 15:58 16:01 Temperature Pulse Rate 87 100 H 94 H Blood Pressure O2 Sat by Pulse 91 95 94 Oximetry 02/14/21 02/14/21 02/14/21 16:03 16:08 16:10 Temperature Pulse Rate 89 90 89 Blood Pressure O2 Sat by Pulse 94 95 94 Oximetry 02/14/21 02/14/21 02/14/21 16:13 16:18 16:23 Temperature Pulse Rate 92 H 87 88 Blood Pressure O2 Sat by Pulse 95 96 96 Oximetry 02/14/21 02/14/21 02/14/21 16:28 16:33 16:37 Temperature Pulse Rate 89 87 109 H Blood Pressure O2 Sat by Pulse 97 97 94 Oximetry 02/14/21 02/14/21 02/14/21 16:38 16:43 16:47 Temperature Pulse Rate 91 H 90 94 H Blood Pressure O2 Sat by Pulse 88 96 94 Oximetry 02/14/21 02/14/21 02/14/21 16:48 16:53 16:58 Temperature Pulse Rate 85 98 H 89 Blood Pressure O2 Sat by Pulse 88 90 96 Oximetry 02/14/21 02/14/21 02/14/21 17:03 17:08 17:13 Temperature Pulse Rate 87 80 88 Blood Pressure O2 Sat by Pulse 98 96 98 Oximetry 02/14/21 02/14/21 02/14/21 17:18 17:23 17:28 Temperature Pulse Rate 91 H 92 H 87 Blood Pressure O2 Sat by Pulse 98 98 98 Oximetry 02/14/21 02/14/21 02/14/21 17:31 17:36 17:37 Temperature Pulse Rate 107 H 90 Blood Pressure O2 Sat by Pulse 82 L 94 100 Oximetry 02/14/21 02/14/21 02/14/21 17:42 17:47 17:52 Temperature Pulse Rate 87 95 H 91 H Blood Pressure O2 Sat by Pulse 100 99 100 Oximetry 02/14/21 02/14/21 02/14/21 17:57 18:02 18:06 Temperature Pulse Rate 88 83 85 Blood Pressure 118/55 O2 Sat by Pulse 100 100 Oximetry 02/14/21 02/14/21 02/14/21 18:07 18:12 18:17 Temperature Pulse Rate 85 85 90 Blood Pressure O2 Sat by Pulse 99 100 100 Oximetry 02/14/21 02/14/21 02/14/21 18:22 18:27 18:32 Temperature Pulse Rate 84 83 83 Blood Pressure O2 Sat by Pulse 99 99 100 Oximetry 02/14/21 02/14/21 02/14/21 18:37 18:42 18:47 Temperature Pulse Rate 87 86 84 Blood Pressure O2 Sat by Pulse 99 100 100 Oximetry 02/14/21 02/14/21 02/14/21 18:52 18:57 19:02 Temperature Pulse Rate 94 H 87 80 Blood Pressure O2 Sat by Pulse 99 99 98 Oximetry 02/14/21 02/14/21 02/14/21 19:07 19:12 19:17 Temperature Pulse Rate 83 86 90 Blood Pressure O2 Sat by Pulse 100 99 100 Oximetry 02/14/21 02/14/21 02/14/21 19:22 19:27 19:32 Temperature Pulse Rate 87 80 110 H Blood Pressure O2 Sat by Pulse 99 100 100 Oximetry 02/14/21 02/14/21 02/14/21 19:37 19:42 19:47 Temperature Pulse Rate 80 79 87 Blood Pressure O2 Sat by Pulse 100 100 99 Oximetry 02/14/21 02/14/21 02/14/21 19:52 19:57 20:02 Temperature Pulse Rate 83 82 90 Blood Pressure O2 Sat by Pulse 100 99 100 Oximetry 02/14/21 02/14/21 02/14/21 20:07 20:56 21:01 Temperature Pulse Rate 83 88 85 Blood Pressure O2 Sat by Pulse 99 100 98 Oximetry 02/14/21 02/14/21 02/14/21 21:06 21:11 21:16 Temperature Pulse Rate 85 79 77 Blood Pressure O2 Sat by Pulse 99 100 100 Oximetry 02/14/21 02/14/21 21:22 21:27 Temperature Pulse Rate 94 H 83 Blood Pressure O2 Sat by Pulse 100 99 Oximetry - Labs Labs: Abnormal Labs 02/14/21 02/14/21 10:55 10:55 MCV 76 L MCH 25 L [place] % (Auto) 10.0 H Crossmatch See Detail Laboratory Results - last 24 hr 02/14/21 02/14/21 02/14/21 10:55 10:55 Unknown WBC 7.3 RBC 4.19 Hgb 10.5 Hct 31.6 MCV 76 L MCH 25 L MCHC 33 RDW 13.6 Plt Count 157 Lymph % (Auto) 22.8 [place] % (Auto) 10.0 H Eos % (Auto) 0.2 Baso % (Auto) 0.4 Lymph # (Auto) 1.7 [place] # (Auto) 0.7 Eos # (Auto) 0.0 Baso # (Auto) 0.0 Seg Neutrophils % 66.6 Seg Neutrophils # 4.8 Urine Opiates Screen Negative Urine Methadone Screen Negative Ur Barbiturates Screen Negative Ur Phencyclidine Scrn Negative Ur Amphetamines Screen Negative U Benzodiazepines Scrn Negative Urine Cocaine Screen Negative U Marijuana (THC) Screen Positive Drugs of Abuse Note Disclamer Blood Type O POSITIVE Antibody Screen Negative Crossmatch See Detail
[2021-02-14] MEDS: ZOLPIDEM 5 MG TAB PO PRN (23:27)
[2021-02-15] MEDS ORDERED: METOCLOPRAMIDE 10 MG/2 ML INJ IV NR (06:47)
[2021-02-15] MEDS ORDERED: BICITRA ORAL LIQD 30ML PO NR (06:48)
[2021-02-15] MEDS ORDERED: FAMOTIDINE 20 MG/2 ML INJ IV ONE (06:52)
[2021-02-15] MEDS ORDERED: miSOPROStol 100 MCG TAB ONE (07:11)
[2021-02-15] MEDS ORDERED: METHYLERGONOVINE MALEATE 0.2 MG/ML VIAL IM ONE (07:11)
[2021-02-15] MEDS ORDERED: ceFAZolin/Water 2 GM/20 ML 2 GM/20 ML SYRINGE IV ONE (07:12)
--- NOTE | 2021-02-15 07:30 | Progress Note ---
Subjective - Subjective Date of service: 02/15/21 Interval history: Stable to OR for procedure Radha Hidalgo MD Objective - Vital Signs Vital Signs: Vital Signs - 12hr 02/14/21 02/14/21 02/14/21 19:32 19:37 19:42 Pulse Rate 110 H 80 79 Blood Pressure O2 Sat by Pulse 100 100 100 Oximetry O2 Sat by Pulse Oximetry [ Bilateral] 02/14/21 02/14/21 02/14/21 19:47 19:52 19:57 Pulse Rate 87 83 82 Blood Pressure O2 Sat by Pulse 99 100 99 Oximetry O2 Sat by Pulse Oximetry [ Bilateral] 02/14/21 02/14/21 02/14/21 20:02 20:07 20:56 Pulse Rate 90 83 88 Blood Pressure O2 Sat by Pulse 100 99 100 Oximetry O2 Sat by Pulse Oximetry [ Bilateral] 02/14/21 02/14/21 02/14/21 21:01 21:06 21:11 Pulse Rate 85 85 79 Blood Pressure O2 Sat by Pulse 98 99 100 Oximetry O2 Sat by Pulse Oximetry [ Bilateral] 02/14/21 02/14/21 02/14/21 21:16 21:22 21:27 Pulse Rate 77 94 H 83 Blood Pressure O2 Sat by Pulse 100 100 99 Oximetry O2 Sat by Pulse Oximetry [ Bilateral] 02/14/21 02/14/21 02/14/21 21:32 21:37 21:41 Pulse Rate 79 78 Blood Pressure O2 Sat by Pulse 98 100 Oximetry O2 Sat by Pulse 100 Oximetry [ Bilateral] 02/14/21 02/14/21 02/14/21 21:42 21:47 21:52 Pulse Rate 80 77 87 Blood Pressure O2 Sat by Pulse 100 100 100 Oximetry O2 Sat by Pulse Oximetry [ Bilateral] 02/14/21 02/14/21 02/14/21 21:57 22:02 22:07 Pulse Rate 81 80 78 Blood Pressure O2 Sat by Pulse 99 100 100 Oximetry O2 Sat by Pulse Oximetry [ Bilateral] 02/14/21 02/14/21 02/14/21 22:12 22:17 22:22 Pulse Rate 81 80 81 Blood Pressure O2 Sat by Pulse 100 99 100 Oximetry O2 Sat by Pulse Oximetry [ Bilateral] 02/14/21 02/14/21 02/14/21 22:27 22:32 22:37 Pulse Rate 83 82 79 Blood Pressure O2 Sat by Pulse 100 99 100 Oximetry O2 Sat by Pulse Oximetry [ Bilateral] 02/14/21 02/14/21 02/14/21 22:42 22:47 22:48 Pulse Rate 82 84 Blood Pressure O2 Sat by Pulse 99 94 89 Oximetry O2 Sat by Pulse Oximetry [ Bilateral] 02/14/21 02/14/21 02/14/21 23:30 23:31 23:35 Pulse Rate 89 82 78 Blood Pressure 125/68 O2 Sat by Pulse 99 99 Oximetry O2 Sat by Pulse Oximetry [ Bilateral] 02/14/21 02/14/21 02/14/21 23:40 23:45 23:50 Pulse Rate 71 77 81 Blood Pressure O2 Sat by Pulse 98 99 98 Oximetry O2 Sat by Pulse Oximetry [ Bilateral] 02/14/21 02/14/21 02/15/21 23:52 23:55 00:00 Pulse Rate 85 78 91 H Blood Pressure O2 Sat by Pulse 87 99 99 Oximetry O2 Sat by Pulse Oximetry [ Bilateral] 02/15/21 02/15/21 02/15/21 00:05 00:10 00:11 Pulse Rate 78 77 77 Blood Pressure O2 Sat by Pulse 97 98 91 Oximetry O2 Sat by Pulse Oximetry [ Bilateral] 02/15/21 02/15/21 02/15/21 00:15 00:20 00:25 Pulse Rate 70 82 76 Blood Pressure O2 Sat by Pulse 100 100 100 Oximetry O2 Sat by Pulse Oximetry [ Bilateral] 02/15/21 02/15/21 02/15/21 00:30 00:35 00:40 Pulse Rate 77 83 73 Blood Pressure O2 Sat by Pulse 100 97 96 Oximetry O2 Sat by Pulse Oximetry [ Bilateral] 02/15/21 02/15/21 02/15/21 00:45 00:49 00:50 Pulse Rate 84 78 93 H Blood Pressure O2 Sat by Pulse 97 94 95 Oximetry O2 Sat by Pulse Oximetry [ Bilateral] 02/15/21 02/15/21 02/15/21 00:55 01:00 01:07 Pulse Rate 81 81 86 Blood Pressure O2 Sat by Pulse 96 96 97 Oximetry O2 Sat by Pulse Oximetry [ Bilateral] 02/15/21 02/15/21 02/15/21 01:12 01:14 01:17 Pulse Rate 81 80 81 Blood Pressure O2 Sat by Pulse 97 94 95 Oximetry O2 Sat by Pulse Oximetry [ Bilateral] 02/15/21 02/15/21 02/15/21 01:19 01:22 01:27 Pulse Rate 75 85 80 Blood Pressure O2 Sat by Pulse 94 97 97 Oximetry O2 Sat by Pulse Oximetry [ Bilateral] 02/15/21 02/15/21 02/15/21 01:32 01:33 01:37 Pulse Rate 78 77 71 Blood Pressure O2 Sat by Pulse 96 94 95 Oximetry O2 Sat by Pulse Oximetry [ Bilateral] 02/15/21 02/15/21 02/15/21 01:38 01:42 01:47 Pulse Rate 78 77 84 Blood Pressure O2 Sat by Pulse 94 94 93 Oximetry O2 Sat by Pulse Oximetry [ Bilateral] 02/15/21 02/15/21 02/15/21 01:52 01:57 02:02 Pulse Rate 89 88 83 Blood Pressure O2 Sat by Pulse 93 92 94 Oximetry O2 Sat by Pulse Oximetry [ Bilateral] 02/15/21 02/15/21 02/15/21 02:07 02:08 02:12 Pulse Rate 95 H 91 H 85 Blood Pressure O2 Sat by Pulse 94 94 94 Oximetry O2 Sat by Pulse Oximetry [ Bilateral] 02/15/21 02/15/21 02/15/21 02:17 02:22 02:23 Pulse Rate 86 82 83 Blood Pressure O2 Sat by Pulse 95 95 94 Oximetry O2 Sat by Pulse Oximetry [ Bilateral] 02/15/21 02/15/21 02/15/21 02:27 02:32 02:37 Pulse Rate 78 84 79 Blood Pressure O2 Sat by Pulse 95 95 95 Oximetry O2 Sat by Pulse Oximetry [ Bilateral] 02/15/21 02/15/21 02/15/21 02:42 02:46 02:47 Pulse Rate 83 83 76 Blood Pressure O2 Sat by Pulse 95 94 94 Oximetry O2 Sat by Pulse Oximetry [ Bilateral] 02/15/21 02/15/21 02/15/21 02:52 02:57 03:02 Pulse Rate 74 74 75 Blood Pressure O2 Sat by Pulse 91 94 93 Oximetry O2 Sat by Pulse Oximetry [ Bilateral] 02/15/21 02/15/21 02/15/21 03:07 03:12 03:17 Pulse Rate 77 76 76 Blood Pressure O2 Sat by Pulse 93 93 92 Oximetry O2 Sat by Pulse Oximetry [ Bilateral] 02/15/21 02/15/21 02/15/21 03:22 03:27 03:32 Pulse Rate 76 79 72 Blood Pressure O2 Sat by Pulse 93 92 91 Oximetry O2 Sat by Pulse Oximetry [ Bilateral] 02/15/21 02/15/21 02/15/21 03:37 03:42 03:47 Pulse Rate 76 79 79 Blood Pressure O2 Sat by Pulse 93 93 89 Oximetry O2 Sat by Pulse Oximetry [ Bilateral] 02/15/21 02/15/21 02/15/21 03:52 03:57 04:02 Pulse Rate 79 84 78 Blood Pressure O2 Sat by Pulse 87 90 92 Oximetry O2 Sat by Pulse Oximetry [ Bilateral] 02/15/21 02/15/21 02/15/21 04:03 04:07 04:09 Pulse Rate 81 86 87 Blood Pressure O2 Sat by Pulse 92 94 94 Oximetry O2 Sat by Pulse Oximetry [ Bilateral] 02/15/21 02/15/21 02/15/21 04:12 04:17 04:22 Pulse Rate 86 75 80 Blood Pressure O2 Sat by Pulse 89 92 87 Oximetry O2 Sat by Pulse Oximetry [ Bilateral] 02/15/21 02/15/21 02/15/21 04:27 04:32 04:37 Pulse Rate 78 82 78 Blood Pressure O2 Sat by Pulse 89 95 87 Oximetry O2 Sat by Pulse Oximetry [ Bilateral] 02/15/21 02/15/21 02/15/21 04:42 04:51 04:56 Pulse Rate 82 82 88 Blood Pressure O2 Sat by Pulse 86 87 97 Oximetry O2 Sat by Pulse Oximetry [ Bilateral] 02/15/21 02/15/21 02/15/21 05:01 05:06 05:11 Pulse Rate 68 71 71 Blood Pressure O2 Sat by Pulse 98 98 98 Oximetry O2 Sat by Pulse Oximetry [ Bilateral] 02/15/21 02/15/21 02/15/21 05:16 05:20 05:21 Pulse Rate 77 69 70 Blood Pressure O2 Sat by Pulse 97 94 97 Oximetry O2 Sat by Pulse Oximetry [ Bilateral] 02/15/21 02/15/21 02/15/21 05:26 05:31 05:36 Pulse Rate 71 76 72 Blood Pressure O2 Sat by Pulse 99 100 98 Oximetry O2 Sat by Pulse Oximetry [ Bilateral] 02/15/21 02/15/21 02/15/21 05:40 05:41 05:46 Pulse Rate 87 78 72 Blood Pressure O2 Sat by Pulse 93 95 96 Oximetry O2 Sat by Pulse Oximetry [ Bilateral] 02/15/21 02/15/21 02/15/21 05:51 05:56 06:01 Pulse Rate 73 75 76 Blood Pressure O2 Sat by Pulse 99 100 100 Oximetry O2 Sat by Pulse Oximetry [ Bilateral] 02/15/21 02/15/21 02/15/21 06:06 06:11 06:14 Pulse Rate 73 71 77 Blood Pressure O2 Sat by Pulse 100 95 94 Oximetry O2 Sat by Pulse Oximetry [ Bilateral] 02/15/21 02/15/21 02/15/21 06:16 06:19 06:21 Pulse Rate 68 77 78 Blood Pressure O2 Sat by Pulse 95 94 97 Oximetry O2 Sat by Pulse Oximetry [ Bilateral] 02/15/21 02/15/21 02/15/21 06:26 06:31 06:33 Pulse Rate 78 74 65 Blood Pressure O2 Sat by Pulse 96 96 91 Oximetry O2 Sat by Pulse Oximetry [ Bilateral] 02/15/21 02/15/21 02/15/21 06:36 06:39 06:41 Pulse Rate 74 73 73 Blood Pressure O2 Sat by Pulse 94 94 94 Oximetry O2 Sat by Pulse Oximetry [ Bilateral] 02/15/21 02/15/21 02/15/21 06:46 06:47 06:51 Pulse Rate 75 69 73 Blood Pressure O2 Sat by Pulse 93 94 92 Oximetry O2 Sat by Pulse Oximetry [ Bilateral] 02/15/21 02/15/21 06:54 06:56 Pulse Rate 74 88 Blood Pressure O2 Sat by Pulse 94 97 Oximetry O2 Sat by Pulse Oximetry [ Bilateral] - Labs Labs: Abnormal Labs 02/14/21 02/14/21 10:55 10:55 MCV 76 L MCH 25 L [place] % (Auto) 10.0 H Crossmatch See Detail Laboratory Results - last 24 hr 02/14/21 02/14/21 02/14/21 10:55 10:55 Unknown WBC 7.3 RBC 4.19 Hgb 10.5 Hct 31.6 MCV 76 L MCH 25 L MCHC 33 RDW 13.6 Plt Count 157 Lymph % (Auto) 22.8 [place]le % (Auto) 10.0 H Eos % (Auto) 0.2 Baso % (Auto) 0.4 Lymph # (Auto) 1.7 [place] # (Auto) 0.7 Eos # (Auto) 0.0 Baso # (Auto) 0.0 Seg Neutrophils % 66.6 Seg Neutrophils # 4.8 Urine Opiates Screen Negative Urine Methadone Screen Negative Ur Barbiturates Screen Negative Ur Phencyclidine Scrn Negative Ur Amphetamines Screen Negative U Benzodiazepines Scrn Negative Urine Cocaine Screen Negative U Marijuana (THC) Screen Positive Drugs of Abuse Note Disclamer Blood Type O POSITIVE Antibody Screen Negative Crossmatch See Detail
[2021-02-15] MEDS ORDERED: PHENYLEPHRINE/NS 1,000 MCG/10 ML SYRINGE (OR USE) IV ONE (07:43)
[2021-02-15] MEDS ORDERED: WATER FOR IRRIG STERILE 1,500 ML BOTTLE IR ONE (07:59)
[2021-02-15] MEDS ORDERED: SODIUM CHLORIDE 0.9% IRR 1,500 ML BOTTLE IR ONE (07:59)
[2021-02-15] MEDS ORDERED: KETOROLAC 30 MG/1 ML INJ ONE (08:13)
[2021-02-15] MEDS ORDERED: BUPIVACAINE/PF (0.25%) 2.5 MG/ML 30 ML VIAL INFILTRATI ONE ×2 (08:20)
[2021-02-15] MEDS ORDERED: dexAMETHasone 20 MG/5 ML VIAL ONE (08:20)
[2021-02-15] MEDS ORDERED: ONDANSETRON 4 MG/2 ML INJ ONE ×2 (08:33→09:33)
--- NOTE | 2021-02-15 09:17 | Anesthesia Day of Surgery ---
Anesthesia Day of Surgery - Day of Surgery Patient Examined: Yes Patient H&P Reviewed: Yes Patient is NPO: Yes Beta Blockers: No Cardiac Clearance: No Pulmonary Clearance: No Leo's Test: Negative (case cancelled yesterday, patient THC positive)
--- NOTE | 2021-02-15 09:18 | Progress Note ---
Spinal Anesthesia Block - Spinal Anesthesia Block Start Time: 07:38 Stop Time: 07:40 Performed by:: MIGUEL CALVERT Procedure: Patient IDed, H&P reviewed, all questions and concerns were answered, and consent was signed. Timeout was performed at bedside. Patient in sitting position. Sterile prep and drape was performed. [3] ml of 1% lidocaine skin wheal at L[3]- L [4]. Needle introducer advanced. 25 gauge spinal needle advanced. Clear, free flowing CSF. negative blood, negative paresthesia. Spinal dose given. All needles removed. Patient tolerated procedure.
--- NOTE | 2021-02-15 09:19 | Progress Note ---
Regional Anesthesia Block - Regional Anesthesia Block Start Time: 08:58 Stop Time: 09:00 Performed By:: MIGUEL CALVERT Procedure: Patient consented for TAP block for post surgical pain management. Patient identified, monitors placed, and time out performed. TAP identified bilaterally via ultrasound. Skin prepped bilaterally with [chlorhexidine] and [22g stimuplex] needle advanced to the TAP. [Marcaine 0.25% 35ml] injected under ultrasound guidance on the [left] side. [Marcaine 0.25% 35ml] injected under ultrasound guidance on the [right] side. Negative aspiration every 5mL, No change in heart rate or rhythm. Patient tolerated the procedure well. No apparent complications seen.
--- NOTE | 2021-02-15 09:37 | Procedure Note ---
OB Delivery Note - Delivery Date of Delivery: 02/15/21 Surgeon: LETTY PRUITT - Section Postop diagnosis: same section procedure: repeat low transverse Disposition: PACU Complications: none Narrative: Preop diagnosis: IUP at 38.5 weeks, previous sectionx6 for ERCS,declines sterilization Postop diagnosis: Same Procedure: Repeat low transverse section via Pfannenstiel incision Surgeon: Dr. Letty Pruitt Anesthesia spinal Complications none EBL 500 ml IV fluids 1000 mL Urine output 200 mL, clear Drains Aguero to gravity Findings: Viable female with weight 2675gms and 8/9 normal uterus tubes and ovaries bilaterally Procedure: Patient was consented in 2007, taken to the operating room where she received excellent spinal anesthesia. She was then placed in the dorsal supine position with a leftward tilt. The abdomen was prepped and draped in a sterile fashion, and a timeout was verified. Adequate anesthesia was confirmed prior to the skin incision. A Pfannenstiel skin incision was made with a scalpel taken down to the underlying structures and the fascia was incised in the midline. The incision was extended laterally with curved Yeager scissors, the superior and inferior aspects of the fascial incisions were grasped with Fitz clamps and the rectus muscles dissected sharply. The abdomen was entered bluntly in the midline carried down inferiorly with good visualization of the bladder. The vesicouterine peritoneum was tented with Vincentian forceps and incised in the midline with Metzenbaum scissors and the vesicouterine peritoneum taken down sharply. Bladder blade was inserted, the uterine incision was made sharply with a scalpel. The inferior and superior aspect of the uterine incisions were extended bluntly, the baby's head was delivered atraumatically. The remainder of the delivery was atraumatic, no nuchal cord was reduced after delivery. The cord was clamped and cut and baby handed to waiting NICU team. An intact placenta with three-vessel cord delivered manually. The uterus was then cleared of all clots and debris and the uterus exteriorized. The uterine incision was closed with 2 layers of 0 chromic with excellent hemostasis. The abdomen was then irrigated with warm normal saline and the uterus placed back into the abdomen atraumatically. A second look at the uterine incision assured hemostasis. The peritoneum was closed with 3-0 Vicryl, the rectus muscles approximated with 3-0 Vicryl, and the fascia closed with 0 Vicryl in the usual fashion. The subcuticular structures were closed with interrupted sutures of 3- 0 Vicryl and the skin closed with 4-0 Monocryl. A pressure dressing was applied. All sponge needle and instrument counts were correct x2. There were no complications. Mom to the recovery area and baby to NICU in stable condition. EBL 500 mL Radha Pruitt MD - A at 1 minute: 8 at 5 minutes: 9 Infant Gender: Female (2675gms)
[2021-02-15] MEDS ORDERED: OXYTOCIN DRIP 30 UNITS/500 ML BAG IV SCH (10:00)
[2021-02-15] MEDS ORDERED: WITCH HAZEL/ GLYCERIN PAD TP PRN (11:00)
[2021-02-15] MEDS ORDERED: IBUPROFEN 600 MG TAB PO PRN (11:00)
[2021-02-15] MEDS ORDERED: KETOROLAC 30 MG/1 ML INJ IV PRN ×2 (11:00)
[2021-02-15] MEDS ORDERED: LANOLIN/ZINC/DIMETHICONE (LANSINOH) 7 GM TP PRN (11:00)
[2021-02-15] MEDS ORDERED: MORPHINE 2 MG/1 ML INJ IV PRN (11:00)
[2021-02-15] MEDS ORDERED: oxyCODONE /ACETAMINOPHEN 5-325MG TAB PO PRN (11:00)
[2021-02-15] MEDS ORDERED: NALOXONE 0.4 MG/1 ML INJ IV PRN (11:00)
[2021-02-15] MEDS ORDERED: HYDROcodone/ACETAMINOPHEN 5-325 MG TAB PO PRN (11:00)
[2021-02-15] MEDS ORDERED: MORPHINE 4 MG/1 ML INJ IV PRN (11:00)
[2021-02-15] MEDS: cefTRIAXone/NS 2 GM/100 ML 2 GM/100 ML BAG IV SCH (16:35)
--- NOTE | 2021-02-15 17:42 | Post Anesthesia Evaluation ---
- Post Anesthesia Evaluation Patient Participated: Yes Airway Patent: Yes Stable Respiratory Function: Yes Nausea/Vomiting: No Temp > 96.8F: Yes Pain Manageable: Yes Adequeate Hydration: Yes Anesthesia Complications: No Block Receding Appropriately: Yes Patient on Ventilator: No
[2021-02-15] MEDS ORDERED: LACTATED RINGERS 1,000 ML ONE (18:30)
[2021-02-15] MEDS ORDERED: LACTATED RINGERS 1,000 ML IV SCH (19:15)
[2021-02-16] MEDS: ZOLPIDEM 5 MG TAB PO PRN (00:40)
[2021-02-16 00:55] LABS: Hematocrit 27.1 % (30.3-42.9); Hemoglobin 9.1 gm/dl (10.1-14.3)
[2021-02-16] MEDS: IBUPROFEN 800 MG TAB PO PRN ×2 (06:22→22:44)
[2021-02-16] MEDS: FAMOTIDINE 20 MG/2 ML INJ IV SCH ×2 (10:02→23:46)
--- NOTE | 2021-02-16 11:10 | Progress Note ---
Assessment and Plan A: POD #1 +Covid (Asymptomtic) P: Follow Routine PostOp Orders Subjective - Subjective Date of service: 02/16/21 Patient reports: appetite normal, voiding normally, pain well controlled, flatus, bowel movement, ambulating normally, other (States she had +Covid last month with all the symptoms; Now she does not why her test is positive a month later and she has No S/S of Covid) [place]: doing well, bottle feeding Objective - Vital Signs Latest vital signs: Vital Signs Temp Pulse Resp BP BP BP Pulse Ox 02/16/21 06:22 02/16/21 04:30 98 F 66 16 114/68 02/16/21 02:13 16 02/16/21 01:13 22 02/16/21 00:00 98.8 F 72 18 114/79 02/15/21 19:30 98.2 F 61 18 113/68 100 02/15/21 15:52 97.9 F 76 20 118/69 96 02/15/21 11:10 Pulse Ox 02/16/21 06:22 99 02/16/21 04:30 02/16/21 02:13 99 02/16/21 01:13 02/16/21 00:00 02/15/21 19:30 100 02/15/21 15:52 02/15/21 11:10 99 Intake and Output 02/15/21 02/16/21 02/16/21 22:59 06:59 14:59 Intake Total 540 Output Total 1800 1300 Balance -1260 -1300 Intake: Oral 240 Intake, Free Water 300 Output: Urine 1800 1300 Indwelling 300 Indwelling Catheter 1500 Void 1300 Other: Total, Intake Amount 240 Total, Output Amount 300 500 # Voids Void 1 # Bowel Movements 1 - Exam Breasts: Present: normal Cardiovascular: Present: Regular rate Lungs: Present: Clear to auscultation, Normal air movement Abdomen: Present: normal appearance, soft, normal bowel sounds Uterus: Present: normal, firm, fundal height below umbilicus Extremities: Present: normal Incision: Present: normal, intact, other (slight moist) - Labs Labs: Abnormal lab results 02/15/21 02/16/21 Range/Units Unknown 00:06 Hgb 9.1 L (10.1-14.3) gm/dl Hct 27.1 L (30.3-42.9) % Coronavirus (PCR) Positive A (Negative)
[2021-02-16] MEDS: cefTRIAXone/NS 2 GM/100 ML 2 GM/100 ML BAG IV SCH (16:30)
[2021-02-17] MEDS: IBUPROFEN 800 MG TAB PO PRN (05:26)
--- NOTE | 2021-02-17 11:55 | Progress Note ---
Assessment and Plan A: S/P repeat c/s x 6 Pos marijuana P: Seen by SS baby will be detained D/C home per pt's request Subjective - Subjective Date of service: 02/17/21 Principal diagnosis: s/p repeat LTCS Patient reports: appetite normal, voiding normally, pain well controlled, flatus, ambulating normally : doing well, bottle feeding Objective - Vital Signs Latest vital signs: Vital Signs Temp Pulse Resp BP Pulse Ox Pulse Ox 02/17/21 08:35 100 02/17/21 05:26 20 02/16/21 22:49 98 F 70 20 107/72 99 02/16/21 22:44 20 02/16/21 20:30 98 02/16/21 18:16 99 02/16/21 16:55 97.9 F 81 126/77 02/16/21 16:24 99 02/16/21 14:30 99 02/16/21 12:00 99 Intake and Output 02/16/21 02/17/21 02/17/21 22:59 06:59 14:59 Intake Total 240 360 Balance 240 360 Intake: Oral 120 Intake, Free Water 240 240 Other: Total, Intake Amount 120 # Voids Void 1 2 - Exam Breasts: Present: normal Abdomen: Present: normal appearance, soft, normal bowel sounds Vulva: both: normal Uterus: Present: normal, firm, fundal height below umbilicus Extremities: Present: normal Incision: Present: normal, dry, intact
--- NOTE | 2021-02-17 11:57 | Discharge Summary ---
Providers - Providers Date of Admission: 02/14/21 10:12 Date of discharge: 02/17/21 Attending physician: LETTY PRUITT MD 02/15/21 19:29 Consult to Case Management [CONS] Routine Services Needed at Discharge: Supervisor [employer] Notified:: no Comment:: pt. positive THC Primary care physician: LETTY PRUITT MD Hospitalization Reason for admission: section, IUP at term Delivery: Episiotomy: none Laceration: none Incision: normal, dry, intact Other procedures: none complications: none Discharge diagnosis: IUP at term delivered [place] baby: female Hospital course: Pt presented to [facility] for an elective c/s. She had a repeat LTCS w/o pp complications. Pos marijuana drug screen. Started on Fe r/t hgb of 9.1. She was d/c'd home in stable condition per pt's request. See H&P, delivery summary, and pp notes. Condition at discharge: Stable Disposition: 01 HOME / SELF CARE / HOMELESS Plan - Discharge Medications Prescriptions: Ibuprofen [Motrin] 600 mg PO Q8H PRN #60 tablet PRN Reason: Pain oxyCODONE /ACETAMINOPHEN [Percocet 5/325] 1 tab PO Q6HR PRN #20 tablet PRN Reason: Pain - Provider Discharge Summary Activity: routine, no sex for 6 weeks, no heavy lifting 4 weeks, no strenuous exercise Diet: routine Instructions: routine Additional instructions: [] Smoking cessation referral if applicable(refer to patient education folder for contact #) [] Refer to [facility] Booklet Call your doctor immediately for: * Fever > 100.5 * Heavy vaginal bleeding ( >1 pad per hour) * Severe persistent headache * Shortness of breath * Reddened, hot, painful area to leg or breast * Drainage or odor from incision. * Keep incision clean and dry at all times and follow doctor's instructions regarding bathing/showering - Follow up plan Follow up: LETTY PRUITT MD [Primary Care Provider] - 14 Days
[2021-02-17 18:24] VITALS: BP 110/77
== END 2021-02-17 17:25 | disposition home or self-care (01) | DRG 765 ==
LOC: APU 10:12 → LD 20:39 → APU 02-15 10:08 → OB 02-15 11:49
PROVIDERS: ADMIT Obstetrics & Gynecology; ATTEND Obstetrics & Gynecology
PROC: 10D00Z1 Extraction of Products of Conception, Low, Open Approach (ICD-10-PCS; principal; 2021-02-15)
PROC: 3E0T3BZ Introduction of Anesthetic Agent into Peripheral Nerves and Plexi, Percutaneous Approach (ICD-10-PCS; 2021-02-15)
DX: O34.211 Maternal care for low transverse scar from previous cesarean delivery (principal); O24.32 Unspecified pre-existing diabetes mellitus in childbirth; U07.1 COVID-19; Z37.0 Single live birth; Z3A.38 38 weeks gestation of pregnancy; O99.334 Smoking (tobacco) complicating childbirth; F17.210 Nicotine dependence, cigarettes, uncomplicated; O99.324 Drug use complicating childbirth; F12.90 Cannabis use, unspecified, uncomplicated; O99.62 Diseases of the digestive system complicating childbirth; O99.214 Obesity complicating childbirth; E11.9 Type 2 diabetes mellitus without complications; K21.9 Gastro-esophageal reflux disease without esophagitis; O98.53 Other viral diseases complicating the puerperium
CPT/HCPCS: 36415; 80307; 85014; 85018; 85025; 86850; 86900; 86901; 86920; G0378; J0690; J0696; J1100; J1885; J2370; J2405; J2590; J2765; J3490; J7120; U0003

== ENCOUNTER 2021-09-20 10:54 | Emergency (ER) | payer MEDICAID ==
[2021-09-20 11:08] VITALS: BP 120/73
--- NOTE | 2021-09-20 11:49 | XRay Report ---
LEFT WRIST 3 VIEWS INDICATION: fall, pain. COMPARISON: None. IMPRESSION: No osseous abnormality or joint pathology is detected. The soft tissues are unremarkabl e. Signer Name: Mateusz Martell Jr, MD Signed: 09/20/2021 11:44 AM Workstation Name: [id number]
== END 2021-09-20 13:31 ==
LOC: ED 10:54
DX: S69.92XA Unspecified injury of left wrist, hand and finger(s), initial encounter (principal); Z53.21 Procedure and treatment not carried out due to patient leaving prior to being seen by health care provider; X58.XXXA Exposure to other specified factors, initial encounter; Y93.89 Activity, other specified; Y92.89 Other specified places as the place of occurrence of the external cause; Y99.8 Other external cause status